=== PATIENT | male | born 1940 | race Caucasian/White ===

== ENCOUNTER 2017-07-11 14:01 | Inpatient (IN) | payer MEDICARE ==
[~2017-07-11] VITALS: Ht 182.9 cm; Wt 97.3 kg
[2017-07-11] MEDS ORDERED: ASPIRIN 325 MG TABLET ONE (14:39)
[2017-07-11] MEDS ORDERED: SUCRALFATE 1 GM TABLET ONE (14:39)
[2017-07-11] MEDS ORDERED: NITROGLYCERIN 0.4 MG SL TAB SL ONE (14:39)
[2017-07-11] MEDS ORDERED: IPRATROPIUM/ALBUTEROL SULFATE 3 ML SOLUTION IH ONE (14:50)
[2017-07-11 15:00] LABS: BASOPHILS % (AUTO) 0.7 % (0.0-5.0); EOSINOPHILS % (AUTO) 2.2 % (0.0-8.0); HEMATOCRIT 32.4 % (42-54); LYMPHOCYTES % (AUTO) 14.5 % (21.0-51.0); MEAN CORPUSCULAR HEMOGLOBIN 27.2 pg (27.0-33.0); MEAN CORPUSCULAR VOLUME 82.4 fL (79-99); MONOCYTES % (AUTO) 7.3 % (3.0-13.0); NEUTROPHILS % (AUTO) 75.3 % (40.0-77.0); PLATELET COUNT (AUTO) 185 K/uL (130-400); RED BLOOD CELL COUNT(AUTO) 3.93 MIL/uL (4.50-6.20); RED CELL DISTRIBUTION WIDTH 16.4 % (11.0-15.5); WHITE BLOOD COUNT (AUTO) 7.6 K/uL (4.8-10.8)
[2017-07-11 15:13] LABS: CREATININE 1.1 mg/dL (0.5-1.5); POTASSIUM 3.6 mmol/L (3.5-5.1)
[2017-07-11 15:14] LABS: INR 0.98 (0.85-1.15); PARTIAL THROMBOPLASTIN TIME 27.1 SEC (26.3-35.5); PROTHROMBIN TIME 10.3 SEC (9.6-11.6)
[2017-07-11 15:28] LABS: ALBUMIN 3.4 g/dL (3.5-5.0); BILIRUBIN,TOTAL 0.4 mg/dL (0.2-1.0); CREATINE KINASE MB 2.4 ng/mL (0.5-3.6); TOTAL PROTEIN, SERUM 6.9 g/dL (6.0-8.3)
[2017-07-11] MEDS ORDERED: FAMOTIDINE 20MG TAB 20 MG TAB ONE (16:15)
[2017-07-11] MEDS ORDERED: NITROGLYCERIN 1GM/1 INCH PACKET TD ONE (16:16)
[2017-07-11] MEDS ORDERED: HYDRALAZINE HCL 20 MG/ML VIAL ONE (18:20)
[2017-07-11] MEDS ORDERED: AZITHROMYCIN 500MG+NS 250ML 250 ML IV ONE (18:21)
[2017-07-11 19:23] VITALS: BP 132/65
[2017-07-11] MEDS ORDERED: HYDRALAZINE HCL 20 MG/ML VIAL IV PRN (20:00)
[2017-07-11 20:41] LABS: CREATINE KINASE MB 1.7 ng/mL (0.5-3.6); CREATINE KINASE, TOTAL 188 U/L (21-232); MYOGLOBIN 78 ng/mL (10-92); TROPONIN I < 0.04 ng/mL (0.00-0.06)
[2017-07-11] MEDS ORDERED: CEFTRIAXONE SODIUM 1 GM IVP SCH (21:00)
[2017-07-11] MEDS ORDERED: CARV25TA PO (22:00)
[2017-07-11] MEDS ORDERED: ROSU20TA30 PO (22:00)
[2017-07-11] MEDS ORDERED: CLIN300C9 PO (22:00)
[2017-07-11] MEDS ORDERED: POTA-79 PO (22:00)
[2017-07-11] MEDS ORDERED: LORA10TA7 PO (22:00)
[2017-07-11] MEDS ORDERED: LISI-613 PO (22:00)
[2017-07-11] MEDS ORDERED: ASPI-555 PO (22:00)
[2017-07-11] MEDS ORDERED: SERT100T12 PO (22:00)
[2017-07-11] MEDS ORDERED: AMLO5TAB2 PO (22:00)
[2017-07-11] MEDS ORDERED: POTASSIUM CHLORIDE 20MEQ/100ML 100 ML IV PRN (22:45)
[2017-07-11] MEDS ORDERED: LIDOCAINE HCL-MPF 1% 2ML VIAL IVP PRN (22:45)
[2017-07-11] MEDS ORDERED: POTASSIUM CHLORIDE 20 MEQ ERTAB PO PRN (22:45)
[2017-07-11] MEDS ORDERED: POTASSIUM CHLORIDE 10% ELIXIR 20 MEQ/15 ML UDCUP PO PRN (22:45)
[2017-07-11] MEDS ORDERED: ACETAMINOPHEN 325 MG TAB PO PRN (22:45)
[2017-07-11 23:16] VITALS: BP 148/73
[2017-07-11] MEDS: IPRATROPIUM/ALBUTEROL SULFATE 3 ML SOLUTION IH SCH (23:16)
[2017-07-12] MEDS: MEROPENEM 500 MG VIAL IVP SCH ×2 (00:13→08:01)
[2017-07-12 02:40] LABS: CREATINE KINASE MB 1.7 ng/mL (0.5-3.6); CREATINE KINASE, TOTAL 163 U/L (21-232); MYOGLOBIN 76 ng/mL (10-92); TROPONIN I < 0.04 ng/mL (0.00-0.06)
[2017-07-12 03:30] VITALS: BP 152/85
[2017-07-12] MEDS ORDERED: MEROPENEM 500MG+NS 50ML 50 ML IV SCH (06:00)
[2017-07-12] MEDS: IPRATROPIUM/ALBUTEROL SULFATE 3 ML SOLUTION IH SCH (06:40)
[2017-07-12 07:00] VITALS: BP 170/84
[2017-07-12] MEDS: POTASSIUM CHLORIDE 20 MEQ ERTAB PO SCH (07:28)
[2017-07-12] MEDS: CARVEDILOL 25 MG TABLET PO SCH ×2 (08:00→16:31)
[2017-07-12] MEDS: LORATADINE 10 MG TABLET PO SCH (08:00)
[2017-07-12] MEDS: FAMOTIDINE/PF 20 MG/2 ML VIAL IV SCH ×2 (08:01→22:12)
[2017-07-12] MEDS ORDERED: CARVEDILOL 25 MG TABLET PO SCH (09:00)
[2017-07-12] MEDS ORDERED: ASPIRIN 81 MG EC TAB PO SCH (09:00)
[2017-07-12] MEDS ORDERED: AMLODIPINE BESYLATE 5 MG TAB PO SCH (09:00)
[2017-07-12] MEDS ORDERED: LISINOPRIL 20 MG TABLET PO SCH (09:00)
[2017-07-12] MEDS ORDERED: SERTRALINE HCL 50 MG TABLET PO SCH (09:00)
[2017-07-12 11:00] VITALS: BP 147/79
[2017-07-12] MEDS: AZTREONAM 1 GM VIAL IVP SCH ×2 (13:43→22:11)
[2017-07-12] MEDS: KETOROLAC TROMETHAMINE 15MG/ML IV PRN (13:45)
[2017-07-12] MEDS ORDERED: AZTREONAM 1 GM in SODIUM CHLORIDE 0.9% 50 ML IV SCH (14:00)
[2017-07-12 16:00] VITALS: BP 159/83
[2017-07-12] MEDS: AMLODIPINE BESYLATE 5 MG TAB PO SCH (16:31)
[2017-07-12] MEDS ORDERED: AZITHROMYCIN 500MG+NS 250ML 250 ML IV SCH (18:00)
[2017-07-12 19:11] VITALS: BP 150/72
[2017-07-12] MEDS: ASPIRIN 81 MG EC TAB PO SCH (22:10)
[2017-07-12] MEDS: ATORVASTATIN CALCIUM 40 MG TABLET PO SCH (22:10)
[2017-07-12] MEDS: LISINOPRIL 20 MG TABLET PO SCH (22:10)
[2017-07-12] MEDS: SERTRALINE HCL 50 MG TABLET PO SCH (22:11)
[2017-07-12] MEDS: AZITHROMYCIN 250 MG TABLET PO SCH (22:11)
[2017-07-12] MEDS: CLINDAMYCIN 300 MG/D5W 50 ML 50 ML IV SCH (22:11)
[2017-07-12 23:16] VITALS: BP 127/66
[2017-07-13] VITALS (7 sets, daily range): BP systolic 116–190; BP diastolic 62–85
[2017-07-13] MEDS: AZTREONAM 1 GM VIAL IVP SCH ×3 (06:10→22:19)
[2017-07-13] MEDS: CLINDAMYCIN 300 MG/D5W 50 ML 50 ML IV SCH ×3 (06:11→22:20)
[2017-07-13] MEDS: CARVEDILOL 25 MG TABLET PO SCH ×2 (07:48→16:28)
[2017-07-13] MEDS: POTASSIUM CHLORIDE 20 MEQ ERTAB PO SCH (07:48)
[2017-07-13] MEDS: LORATADINE 10 MG TABLET PO SCH (07:48)
[2017-07-13] MEDS: FAMOTIDINE/PF 20 MG/2 ML VIAL IV SCH ×2 (07:49→22:12)
[2017-07-13] MEDS: REGADENOSON 0.4 MG/5 ML PF SYG IVP SCH ×2 (08:15→11:15)
[2017-07-13] MEDS: KETOROLAC TROMETHAMINE 15MG/ML IV PRN (13:22)
[2017-07-13] MEDS ORDERED: IPRATROPIUM/ALBUTEROL SULFATE 3 ML SOLUTION IH SCH (13:30)
[2017-07-13] MEDS: CLOPIDOGREL BISULFATE 75 MG TAB PO SCH (14:32)
[2017-07-13] MEDS: AMLODIPINE BESYLATE 5 MG TAB PO SCH (16:27)
[2017-07-13] MEDS: IPRATROPIUM/ALBUTEROL SULFATE 3 ML SOLUTION IH SCH ×2 (18:50→23:53)
[2017-07-13] MEDS: SERTRALINE HCL 50 MG TABLET PO SCH (22:11)
[2017-07-13] MEDS: ATORVASTATIN CALCIUM 40 MG TABLET PO SCH (22:11)
[2017-07-13] MEDS: ASPIRIN 81 MG EC TAB PO SCH (22:12)
[2017-07-13] MEDS: LISINOPRIL 20 MG TABLET PO SCH (22:12)
[2017-07-13] MEDS: AZITHROMYCIN 250 MG TABLET PO SCH (22:12)
[2017-07-14] VITALS (12 sets, daily range): BP systolic 144–173; BP diastolic 70–89
[2017-07-14 04:45] LABS: HEMATOCRIT 29.3 % (42-54); MEAN CORPUSCULAR HEMOGLOBIN 29.2 pg (27.0-33.0); MEAN CORPUSCULAR HGB CONC 35.4 g/dL (32.0-36.0); MEAN CORPUSCULAR VOLUME 82.2 fL (79-99); PLATELET COUNT (AUTO) 168 K/uL (130-400); RED BLOOD CELL COUNT(AUTO) 3.57 MIL/uL (4.50-6.20); RED CELL DISTRIBUTION WIDTH 16.4 % (11.0-15.5); WHITE BLOOD COUNT (AUTO) 5.4 K/uL (4.8-10.8)
[2017-07-14 04:52] LABS: PARTIAL THROMBOPLASTIN TIME 27.2 SEC (26.3-35.5); PROTHROMBIN TIME 10.5 SEC (9.6-11.6)
[2017-07-14 05:01] LABS: CREATININE 0.9 mg/dL (0.5-1.5); POTASSIUM 3.1 mmol/L (3.5-5.1)
[2017-07-14] MEDS: CLINDAMYCIN 300 MG/D5W 50 ML 50 ML IV SCH ×3 (06:33→21:27)
[2017-07-14] MEDS: AZTREONAM 1 GM VIAL IVP SCH ×3 (06:33→23:15)
[2017-07-14] MEDS ORDERED: SODIUM CHLORIDE 0.9% 250 ML IV ONE (06:41)
[2017-07-14] MEDS: IPRATROPIUM/ALBUTEROL SULFATE 3 ML SOLUTION IH SCH ×4 (06:57→23:50)
[2017-07-14] MEDS ORDERED: LIDOCAINE HCL 1% 20 ML VIAL ONE (07:40)
[2017-07-14] MEDS ORDERED: BIVALIRUDIN 250 MG/VIAL IV ONE (07:40)
[2017-07-14] MEDS ORDERED: ISOVUE-370 50ML VIAL IV ONE (07:41)
[2017-07-14] MEDS ORDERED: FENTANYL CITRATE PF 50 MCG/1 ML 2ML VIAL ONE (07:41)
[2017-07-14] MEDS ORDERED: IOPAMIDOL-370 100 ML VIAL IV ONE (07:41)
[2017-07-14] MEDS ORDERED: NITROGLYCERIN 5 MG/ML 10 ML VIAL IV ONE (07:41)
[2017-07-14] MEDS ORDERED: HEPARIN SODIUM 1000UNIT/ML 10ML VIAL ONE (07:41)
[2017-07-14] MEDS ORDERED: MIDAZOLAM HCL 1 MG/ML 2ML VIAL ONE (07:41)
[2017-07-14] MEDS: CARVEDILOL 25 MG TABLET PO SCH ×2 (08:00→17:08)
[2017-07-14] MEDS: POTASSIUM CHLORIDE 20 MEQ ERTAB PO SCH (09:00)
[2017-07-14] MEDS: CLOPIDOGREL BISULFATE 75 MG TAB PO SCH ×2 (09:00→14:15)
[2017-07-14] MEDS: LORATADINE 10 MG TABLET PO SCH (09:00)
[2017-07-14] MEDS: FAMOTIDINE/PF 20 MG/2 ML VIAL IV SCH ×2 (09:00→21:27)
[2017-07-14] MEDS ORDERED: SODIUM CHLORIDE 0.9% 1000ML 1,000 ML IV SCH (09:14)
[2017-07-14] MEDS ORDERED: ACETAMINOPHEN-CODEINE 300/30MG TAB PO PRN (09:15)
[2017-07-14] MEDS ORDERED: CLOPIDOGREL BISULFATE 300 MG TAB ONE (09:21)
[2017-07-14] MEDS ORDERED: ASPIRIN 81MG TAB.CHEW ONE (09:22)
[2017-07-14] MEDS ORDERED: MAG HYDROX/AL HYDROX/SIMETH ES 30 ML SUSP UDCUP PO PRN (13:45)
[2017-07-14] MEDS: AMLODIPINE BESYLATE 5 MG TAB PO SCH (17:07)
[2017-07-14] MEDS: ATORVASTATIN CALCIUM 40 MG TABLET PO SCH (21:23)
[2017-07-14] MEDS: AZITHROMYCIN 250 MG TABLET PO SCH (21:23)
[2017-07-14] MEDS: LISINOPRIL 20 MG TABLET PO SCH (21:24)
[2017-07-14] MEDS: SERTRALINE HCL 50 MG TABLET PO SCH (21:24)
[2017-07-14] MEDS: ASPIRIN 81 MG EC TAB PO SCH (21:24)
[2017-07-15 03:45] VITALS: BP 138/74
[2017-07-15 05:15] LABS: BASOPHILS % (AUTO) 0.6 % (0.0-5.0); EOSINOPHILS % (AUTO) 4.3 % (0.0-8.0); LYMPHOCYTES % (AUTO) 22.3 % (21.0-51.0); MEAN CORPUSCULAR HEMOGLOBIN 28.4 pg (27.0-33.0); MEAN CORPUSCULAR HGB CONC 34.3 g/dL (32.0-36.0); MEAN CORPUSCULAR VOLUME 82.7 fL (79-99); MONOCYTES % (AUTO) 8.8 % (3.0-13.0); PLATELET COUNT (AUTO) 181 K/uL (130-400); RED BLOOD CELL COUNT(AUTO) 3.74 MIL/uL (4.50-6.20); RED CELL DISTRIBUTION WIDTH 16.7 % (11.0-15.5); WHITE BLOOD COUNT (AUTO) 6.2 K/uL (4.8-10.8)
[2017-07-15] MEDS: AZTREONAM 1 GM VIAL IVP SCH (05:34)
[2017-07-15] MEDS: CLINDAMYCIN 300 MG/D5W 50 ML 50 ML IV SCH (05:34)
[2017-07-15 05:35] LABS: POTASSIUM 3.3 mmol/L (3.5-5.1)
[2017-07-15] MEDS ORDERED: POTASSIUM CHLORIDE 10 MEQ/TAB.SA PO ONE ×2 (05:55)
[2017-07-15] MEDS: IPRATROPIUM/ALBUTEROL SULFATE 3 ML SOLUTION IH SCH ×2 (06:59→11:45)
[2017-07-15 08:00] VITALS: BP 145/79
[2017-07-15] MEDS ORDERED: NITR0.4T SL (08:10)
[2017-07-15] MEDS ORDERED: CLOP75TA32 PO (08:10)
[2017-07-15] MEDS ORDERED: PANT40TA PO (08:10)
[2017-07-15] MEDS ORDERED: PANTOPRAZOLE SODIUM 40 MG TABLET.DR PO SCH (08:15)
[2017-07-15] MEDS ORDERED: CLOPIDOGREL BISULFATE 75 MG TAB PO SCH (09:00)
[2017-07-15] MEDS: CARVEDILOL 25 MG TABLET PO SCH (09:06)
[2017-07-15] MEDS: CLOPIDOGREL BISULFATE 75 MG TAB PO SCH (09:06)
[2017-07-15] MEDS: LORATADINE 10 MG TABLET PO SCH (09:06)
[2017-07-15] MEDS: FAMOTIDINE/PF 20 MG/2 ML VIAL IV SCH (09:07)
[2017-07-15] MEDS: POTASSIUM CHLORIDE 20 MEQ ERTAB PO SCH (09:07)
[2017-07-15 11:00] VITALS: BP 132/64
== END 2017-07-15 16:05 | disposition home or self-care (01) | DRG 246 ==
LOC: EDH 14:01 → EDHIP 17:48 → OBSVTOIN 17:48 → INTOOBSV 17:48 → 2DH 19:04
PROVIDERS: ADMIT Family Medicine; ATTEND Family Medicine
PROC: 027034Z Dilation of Coronary Artery, One Artery with Drug-eluting Intraluminal Device, Percutaneous Approach (ICD-10-PCS; principal; 2017-07-14)
PROC: 4A023N7 Measurement of Cardiac Sampling and Pressure, Left Heart, Percutaneous Approach (ICD-10-PCS; 2017-07-14)
PROC: B2111ZZ Fluoroscopy of Multiple Coronary Arteries using Low Osmolar Contrast (ICD-10-PCS; 2017-07-14)
PROC: B2181ZZ Fluoroscopy of Left Internal Mammary Bypass Graft using Low Osmolar Contrast (ICD-10-PCS; 2017-07-14)
PROC: B2151ZZ Fluoroscopy of Left Heart using Low Osmolar Contrast (ICD-10-PCS; 2017-07-14)
DX: I25.119 Atherosclerotic heart disease of native coronary artery with unspecified angina pectoris (principal); J18.9 Pneumonia, unspecified organism; Z86.74 Personal history of sudden cardiac arrest; D64.9 Anemia, unspecified; R13.10 Dysphagia, unspecified; J44.9 Chronic obstructive pulmonary disease, unspecified; I08.0 Rheumatic disorders of both mitral and aortic valves; I10 Essential (primary) hypertension; K04.7 Periapical abscess without sinus; K21.0 Gastro-esophageal reflux disease with esophagitis; K29.70 Gastritis, unspecified, without bleeding; Z79.02 Long term (current) use of antithrombotics/antiplatelets; Z79.82 Long term (current) use of aspirin; Z95.1 Presence of aortocoronary bypass graft; Z95.0 Presence of cardiac pacemaker; Z88.1 Allergy status to other antibiotic agents; Z88.0 Allergy status to penicillin; Z88.8 Allergy status to other drugs, medicaments and biological substances; Z85.51 Personal history of malignant neoplasm of bladder; Z85.46 Personal history of malignant neoplasm of prostate; Z82.49 Family history of ischemic heart disease and other diseases of the circulatory system; Z80.0 Family history of malignant neoplasm of digestive organs
CPT/HCPCS: 36415; 71045; 73502; 74176; 74230; 78452; 80048; 80053; 82550; 82553; 83874; 83880; 84484; 85025; 85027; 85610; 85730; 92611; 93005; 93017; 93306; 93459; 94640; 94664; 96374; 99152; 99153; 99291; A4218; A9500; C1760; C1769; C1887; C1894; C9604; J0360; J0456; J0583; J1644; J1885; J2185; J2250; J2785; J3010; J3480; J3490; J7030; Q9967

== ENCOUNTER 2018-03-02 14:04 | Observation (INO) | payer MEDICARE ==
[~2018-03-02] VITALS: Ht 177.8 cm; Wt 94.3 kg
[~2018-03-02 14:04] MED LIST: AMLO5TAB7 PO; ASPI-555 PO; CARV25TA PO; CLIN300C9 PO; CLOP75TA32 PO; LISI-613 PO; LORA10TA7 PO; NITR0.4T SL; PANT40TA PO; POTA-79 PO; ROSU20TA30 PO; SERT100T12 PO
[2018-03-02 14:27] LABS: EOSINOPHILS % (AUTO) 4.9 % (0.0-8.0); HEMATOCRIT 39.5 % (42-54); LYMPHOCYTES % (AUTO) 16.3 % (21.0-51.0); MEAN CORPUSCULAR HEMOGLOBIN 26.9 pg (27.0-33.0); MEAN CORPUSCULAR HGB CONC 32.6 g/dL (32.0-36.0); MEAN CORPUSCULAR VOLUME 82.4 fL (79-99); MONOCYTES % (AUTO) 7.1 % (3.0-13.0); NEUTROPHILS % (AUTO) 70.7 % (40.0-77.0); PLATELET COUNT (AUTO) 162 K/uL (130-400); RED CELL DISTRIBUTION WIDTH 17.2 % (11.0-15.5); WHITE BLOOD COUNT (AUTO) 7.2 K/uL (4.8-10.8)
[2018-03-02] MEDS ORDERED: MORPHINE SULFATE 4 MG/1ML SYG ONE ×2 (14:36→15:41)
[2018-03-02] MEDS ORDERED: ONDANSETRON HCL 4 MG/2 ML VIAL ONE (14:36)
[2018-03-02 14:37] LABS: CREATININE 1.3 mg/dL (0.5-1.5); POTASSIUM 4.5 mmol/L (3.5-5.1)
[2018-03-02 14:41] LABS: ALBUMIN 3.6 g/dL (3.5-5.0); BILIRUBIN,TOTAL 0.4 mg/dL (0.2-1.0); TOTAL PROTEIN, SERUM 7.5 g/dL (6.0-8.3)
[2018-03-02 15:28] LABS: APPEARANCE,URINE CLOUDY (CLEAR); BILIRUBIN,URINE NEGATIVE (NEGATIVE); COLOR,URINE YELLOW (YELLOW); GLUCOSE, URINE (UA) NEGATIVE (NEGATIVE); KETONES,URINE NEGATIVE (NEGATIVE); LEUKOCYTE ESTERASE ,URINE NEGATIVE (NEGATIVE); NITRATE,URINE NEGATIVE (NEGATIVE); OCCULT BLOOD,URINE LARGE (NEGATIVE); PH,URINE 6.5 (5.0-8.0); PROTEIN,URINE 30 (NEGATIVE); UROBILINOGEN,URINE 0.2 mg/dL (0.2-1.0)
[2018-03-02 15:44] LABS: RBC,URINE >100 /HPF (0-1)
[2018-03-02 15:49] LABS: BACTERIA,URINE Rare /HPF (None Seen)
[2018-03-02 15:50] LABS: SQUAMOUS EPITHELIAL CELL,UR None Seen /HPF (0-2)
[2018-03-02] MEDS ORDERED: KETOROLAC TROMETHAMINE 30MG/ML ONE (15:59)
[2018-03-02] MEDS ORDERED: NITROGLYCERIN 0.4 MG SL TAB SL PRN (20:15)
[2018-03-02] MEDS ORDERED: ONDANSETRON HCL 4 MG/2 ML VIAL IV PRN (20:15)
[2018-03-02] MEDS ORDERED: ACETAMINOPHEN 325 MG TAB PO PRN (20:15)
[2018-03-02] MEDS ORDERED: GENTAMICIN SULFATE/PF 10 MG/1 ML 2ML IV SCH (20:15)
[2018-03-02] MEDS ORDERED: MORPHINE SULFATE 4 MG/1ML SYG IV PRN (20:15)
[2018-03-02] MEDS ORDERED: CARVEDILOL 12.5 MG TABLET PO SCH (21:00)
[2018-03-02] MEDS: ATORVASTATIN CALCIUM 40 MG TABLET PO SCH (21:00)
[2018-03-02] MEDS ORDERED: CARVEDILOL 12.5 MG TABLET PO ONE (23:40)
[2018-03-03] VITALS (7 sets, daily range): BP systolic 72–157; BP diastolic 69–80
[2018-03-03] MEDS ORDERED: GENTAMICIN PROTOCOL PER PHARMACY IV SCH (00:15)
[2018-03-03] MEDS ORDERED: CARV25TA PO (00:28)
[2018-03-03] MEDS ORDERED: SPIR25TA6 PO (00:30)
[2018-03-03] MEDS: SODIUM CHLORIDE 0.9% 1000ML 1,000 ML IV SCH ×3 (01:11→22:14)
[2018-03-03] MEDS: FAMOTIDINE/PF 20 MG/2 ML VIAL IV SCH ×3 (01:11→20:21)
[2018-03-03] MEDS ORDERED: PHARMACY COMMUNICATION MISC SCH (02:00)
[2018-03-03] MEDS ORDERED: GENTAMICIN 120 MG IN 100ML NS 100 ML IV SCH (04:00)
[2018-03-03] MEDS ORDERED: GENTAMICIN SULFATE 80 MG/2 ML VIAL ONE (04:11)
[2018-03-03] MEDS ORDERED: SODIUM CHLORIDE 0.9% 100 ML IV ONE (04:16)
[2018-03-03] MEDS: CLOPIDOGREL BISULFATE 75 MG TAB PO SCH ×2 (08:50→20:21)
[2018-03-03] MEDS: TAMSULOSIN HCL 0.4 MG CAP.ER.24H PO SCH (08:51)
[2018-03-03] MEDS: CARVEDILOL 12.5 MG TABLET PO SCH (08:51)
[2018-03-03] MEDS: SPIRONOLACTONE 25 MG TAB PO SCH (08:51)
[2018-03-03] MEDS: ENOXAPARIN SODIUM 30 MG/0.3 ML SQ SCH (09:00)
[2018-03-03] MEDS ORDERED: AMLODIPINE BESYLATE 5 MG TAB PO SCH ×2 (09:00→17:00)
[2018-03-03] MEDS ORDERED: POTASSIUM CHLORIDE 20 MEQ ERTAB PO SCH (09:00)
[2018-03-03] MEDS ORDERED: LORATADINE 10 MG TABLET PO PRN (09:00)
[2018-03-03] MEDS ORDERED: LISINOPRIL 20 MG TABLET PO SCH ×2 (09:00→21:00)
[2018-03-03] MEDS ORDERED: ASPIRIN 81MG TAB.CHEW PO SCH ×2 (09:00→21:00)
[2018-03-03] MEDS ORDERED: LORATADINE 10 MG TABLET PO SCH (09:00)
[2018-03-03] MEDS ORDERED: SERTRALINE HCL 50 MG TABLET PO SCH ×2 (09:00→21:00)
[2018-03-03] MEDS ORDERED: CARVEDILOL 25 MG TABLET PO SCH (18:00)
[2018-03-03] MEDS: ATORVASTATIN CALCIUM 40 MG TABLET PO SCH (22:09)
[2018-03-04 04:00] VITALS: BP 119/67
[2018-03-04 04:50] LABS: HEMATOCRIT 35.3 % (42-54); MEAN CORPUSCULAR HEMOGLOBIN 27.1 pg (27.0-33.0); MEAN CORPUSCULAR HGB CONC 33.3 g/dL (32.0-36.0); MEAN CORPUSCULAR VOLUME 81.5 fL (79-99); NUCLEATED RED BLOOD CELLS 0.1 % (0.0-0.19); PLATELET COUNT (AUTO) 158 K/uL (130-400); RED BLOOD CELL COUNT(AUTO) 4.33 MIL/uL (4.50-6.20); RED CELL DISTRIBUTION WIDTH 17.2 % (11.0-15.5); WHITE BLOOD COUNT (AUTO) 6.4 K/uL (4.8-10.8)
[2018-03-04] MEDS ORDERED: GENTAMICIN 120 MG IN 100ML NS 100 ML IV SCH (05:00)
[2018-03-04 05:06] LABS: CARBON DIOXIDE 28 mmol/L (21-32); CHLORIDE 108 mmol/L (101-111); CREATININE 1.1 mg/dL (0.5-1.5); GENTAMICIN,TROUGH < 0.2 mcg/mL (0.0-2.0); GLOMERULAR FILTR. RATE CALC 69 mL/min (>60); GLUCOSE,RANDOM 98 mg/dL (70-105); POTASSIUM 3.9 mmol/L (3.5-5.1); SODIUM SERUM 143 mmol/L (136-145); UREA NITROGEN, BLOOD 23 mg/dL (7-18)
[2018-03-04 08:00] VITALS: BP 148/81
[2018-03-04] MEDS ORDERED: IOHEXOL 350 MG/ML 100ML INFUS..BTL IV ONE (10:03)
[2018-03-04 12:00] VITALS: BP 177/81
[2018-03-04] MEDS: TAMSULOSIN HCL 0.4 MG CAP.ER.24H PO SCH (14:48)
[2018-03-04] MEDS: ENOXAPARIN SODIUM 30 MG/0.3 ML SQ SCH (14:48)
[2018-03-04] MEDS: SPIRONOLACTONE 25 MG TAB PO SCH (14:48)
[2018-03-04] MEDS: CLOPIDOGREL BISULFATE 75 MG TAB PO SCH (14:48)
[2018-03-04 14:49] VITALS: BP 148/81
[2018-03-04] MEDS: FAMOTIDINE/PF 20 MG/2 ML VIAL IV SCH (14:49)
[2018-03-04] MEDS: CARVEDILOL 12.5 MG TABLET PO SCH (14:49)
[2018-03-04] MEDS ORDERED: GENTAMICIN 80 MG/NS 100 ML PB 100 ML IV SCH (21:00)
== END 2018-03-04 18:30 | disposition home or self-care (01) ==
LOC: EDH 14:04 → EDHIP 18:44 → 3AH 22:29
PROVIDERS: ADMIT Internal Medicine; ATTEND Internal Medicine
DX: N20.1 Calculus of ureter (principal); E66.9 Obesity, unspecified; I25.10 Atherosclerotic heart disease of native coronary artery without angina pectoris; J44.9 Chronic obstructive pulmonary disease, unspecified; K57.30 Diverticulosis of large intestine without perforation or abscess without bleeding; K76.89 Other specified diseases of liver; N13.9 Obstructive and reflux uropathy, unspecified; Z85.46 Personal history of malignant neoplasm of prostate; Z85.51 Personal history of malignant neoplasm of bladder; Z87.442 Personal history of urinary calculi; Z95.1 Presence of aortocoronary bypass graft; Z88.0 Allergy status to penicillin; Z88.8 Allergy status to other drugs, medicaments and biological substances
CPT/HCPCS: 36415 ×2; 74176; 74400; 80048; 80053; 80170 ×2; 81001; 84484; 85025; 85027; 86140; 93005; 96365; 96366; 96372; 96375; 96376 ×2; 99284; G0378 ×48; J1580 ×4; J1650; J1885; J2270 ×3; J2405 ×2; J3490 ×4; J7030 ×2; Q9967

== ENCOUNTER → 2018-03-10 | Emergency (ER) | payer MEDICARE ==
[~2018-03-10] MED LIST changes: +ONDANSETRON HCL 4 MG/2 ML VIAL ONE; -POTA-79 PO; +SODIUM CHLORIDE 0.9% 1000ML 0 ML IV ONE; +SODIUM CHLORIDE 0.9% 1000ML 1,000 ML IV ONE; +SPIR25TA6 PO; +TAMSULOSIN HCL 0.4 MG CAP.ER.24H ONE; +TRAMADOL HCL 50 MG TABLET ONE
[2018-03-10 15:36] LABS: APPEARANCE,URINE Clear (CLEAR); BASOPHILS % (AUTO) 1.1 % (0.0-5.0); BILIRUBIN,URINE Negative (NEGATIVE); COLOR,URINE Yellow (YELLOW); EOSINOPHILS % (AUTO) 7.2 % (0.0-8.0); GLUCOSE, URINE (UA) Negative (NEGATIVE); HEMATOCRIT 38.7 % (42-54); KETONES,URINE Negative (NEGATIVE); LEUKOCYTE ESTERASE ,URINE Negative (NEGATIVE); LYMPHOCYTES % (AUTO) 12.7 % (21.0-51.0); MEAN CORPUSCULAR HEMOGLOBIN 26.2 pg (27.0-33.0); MEAN CORPUSCULAR VOLUME 81.7 fL (79-99); MONOCYTES % (AUTO) 11.7 % (3.0-13.0); NEUTROPHILS % (AUTO) 67.3 % (40.0-77.0); NITRATE,URINE Negative (NEGATIVE); OCCULT BLOOD,URINE Small (NEGATIVE); PLATELET COUNT (AUTO) 176 K/uL (130-400); PROTEIN,URINE Trace (NEGATIVE); RED BLOOD CELL COUNT(AUTO) 4.73 MIL/uL (4.50-6.20); RED CELL DISTRIBUTION WIDTH 17.2 % (11.0-15.5); WHITE BLOOD COUNT (AUTO) 7.6 K/uL (4.8-10.8)
[2018-03-10 15:56] LABS: CREATININE 1.6 mg/dL (0.5-1.5); INR 0.93 (0.85-1.15); POTASSIUM 4.1 mmol/L (3.5-5.1); PROTHROMBIN TIME 9.8 SEC (9.6-11.6)
[2018-03-10 15:59] LABS: AMYLASE 75 U/L (25-115); CREATINE KINASE, TOTAL 89 U/L (21-232); LIPASE 342 U/L (114-286)
[2018-03-10 16:01] LABS: ALBUMIN 3.3 g/dL (3.5-5.0); BILIRUBIN,TOTAL 0.3 mg/dL (0.2-1.0); TOTAL PROTEIN, SERUM 7.5 g/dL (6.0-8.3)
[2018-03-10 16:07] LABS: BACTERIA,URINE None Seen /HPF (None Seen); WBC,URINE None Seen /HPF (0-1)
[2018-03-10 16:08] LABS: MUCUS,URINE Moderate LPF (None Seen); SQUAMOUS EPITHELIAL CELL,UR 0-2 /HPF (0-2)
== END ==
LOC: EDH 14:45
DX: N20.1 Calculus of ureter (principal); I10 Essential (primary) hypertension; I25.10 Atherosclerotic heart disease of native coronary artery without angina pectoris; Z85.46 Personal history of malignant neoplasm of prostate; Z85.51 Personal history of malignant neoplasm of bladder; Z87.891 Personal history of nicotine dependence; Z88.0 Allergy status to penicillin; Z88.1 Allergy status to other antibiotic agents; Z88.8 Allergy status to other drugs, medicaments and biological substances
CPT/HCPCS: 36415; 71045; 74176; 80053; 81001; 82150; 82550; 83690; 84484; 85025; 85610; 85730; 93005; 96374; 99284; J2405 ×2; J7030

== ENCOUNTER 2018-03-18 11:00 | Observation (INO) | payer MEDICARE ==
[2018-03-16 14:08] VITALS: BP 135/62
[2018-03-16 14:11] LABS: HEMATOCRIT 35.9 % (42-54); MEAN CORPUSCULAR HEMOGLOBIN 25.9 pg (27.0-33.0); MEAN CORPUSCULAR HGB CONC 31.5 g/dL (32.0-36.0); MEAN CORPUSCULAR VOLUME 82.4 fL (79-99); NUCLEATED RED BLOOD CELLS 0.1 % (0.0-0.19); PLATELET COUNT (AUTO) 194 K/uL (130-400); RED BLOOD CELL COUNT(AUTO) 4.36 MIL/uL (4.50-6.20); RED CELL DISTRIBUTION WIDTH 16.5 % (11.0-15.5); WHITE BLOOD COUNT (AUTO) 5.8 K/uL (4.8-10.8)
[2018-03-16 14:20] LABS: APPEARANCE,URINE Clear (CLEAR); BILIRUBIN,URINE Negative (NEGATIVE); COLOR,URINE Yellow (YELLOW); GLUCOSE, URINE (UA) Negative (NEGATIVE); KETONES,URINE Trace mg/dL (NEGATIVE); LEUKOCYTE ESTERASE ,URINE Negative (NEGATIVE); NITRATE,URINE Negative (NEGATIVE); OCCULT BLOOD,URINE Negative (NEGATIVE); PH,URINE 5.5 (5.0-8.0); PROTEIN,URINE POS 1+ (NEGATIVE)
[2018-03-16 14:22] LABS: BACTERIA,URINE Rare /HPF (None Seen); MUCUS,URINE Rare LPF (None Seen); RBC,URINE 0-1 /HPF (0-1); SQUAMOUS EPITHELIAL CELL,UR Rare /HPF (0-2)
[2018-03-16 14:27] LABS: CREATININE 1.7 mg/dL (0.5-1.5); POTASSIUM 3.9 mmol/L (3.5-5.1)
[2018-03-16 14:29] LABS: INR 0.99 (0.85-1.15); PARTIAL THROMBOPLASTIN TIME 29.6 SEC (26.3-35.5); PROTHROMBIN TIME 10.4 SEC (9.6-11.6)
--- NOTE | 2018-03-16 15:14 | NUR ---
meds Dr. Duarte was called to notify him that patient didn't stop plavix or aspirin, pt took dose this am. Message left on his voicemail. Patient instructed to stop plavix /aspirin immediately , he verbalized understanding.
[~2018-03-18] VITALS: Ht 180.3 cm; Wt 95.3 kg
[2018-03-18] VITALS (20 sets, daily range): BP systolic 72–177; BP diastolic 53–93
[~2018-03-18 11:00] MED LIST changes: -AMLO5TAB7 PO; +AMLO5TAB9 PO; -CLIN300C9 PO; +FEXO1TAB8 PO; -LORA10TA7 PO; -ONDANSETRON HCL 4 MG/2 ML VIAL ONE; +PHARMACY COMMUNICATION MISC SCH; +ROSU20TA PO; -ROSU20TA30 PO; -SODIUM CHLORIDE 0.9% 1000ML 0 ML IV ONE; -SODIUM CHLORIDE 0.9% 1000ML 1,000 ML IV ONE; -TAMSULOSIN HCL 0.4 MG CAP.ER.24H ONE; -TRAMADOL HCL 50 MG TABLET ONE
[2018-03-18] MEDS ORDERED: IOHEXOL-350 50ML VIAL IV ONE (11:34)
[2018-03-18] MEDS: LACTATED RINGERS 1000ML 1,000 ML IV SCH ×3 (12:22→17:15)
--- NOTE | 2018-03-18 12:22 | NUR ---
VALUABLES: WALLET, CELL PHONE, CLOTHING, UPPER / LOWER PARTIALS, AND GLASSES GIVEN TO .
[2018-03-18] MEDS ORDERED: LIDOCAINE PF 2% 5ML ABBOJECT ONE (12:24)
[2018-03-18] MEDS ORDERED: DEXAMETHASONE SOD PHOSPHATE 10MG/ML 1ML VIAL ONE (12:24)
[2018-03-18] MEDS ORDERED: ONDANSETRON HCL 4 MG/2 ML VIAL ONE (12:25)
[2018-03-18] MEDS ORDERED: PROPOFOL 10 MG/ML 20ML VIAL IV ONE (12:25)
[2018-03-18] MEDS ORDERED: FENTANYL CITRATE PF 50 MCG/1 ML 2ML VIAL ONE (12:25)
[2018-03-18] MEDS ORDERED: MIDAZOLAM HCL 1 MG/ML 2ML VIAL ONE (12:25)
[2018-03-18] MEDS ORDERED: CLINDAMYCIN 900 MG/D5% WATER 50 ML IV ONE (12:33)
[2018-03-18] MEDS ORDERED: EPHEDRINE SULFATE 50 MG/ML AMPULE ONE (12:51)
[2018-03-18] MEDS ORDERED: GENTAMICIN IV ONE (12:58)
[2018-03-18] MEDS ORDERED: [UNRECOGNIZED DRUG - OTHER] IV ONE (12:58)
[2018-03-18] MEDS ORDERED: MEPERIDINE-PF 25 MG/ML SYG ONE (13:52)
[2018-03-18] MEDS ORDERED: FEXOFENADINE PO PRN (15:15)
[2018-03-18] MEDS ORDERED: NITROGLYCERIN 0.4 MG SL TAB SL PRN (15:15)
[2018-03-18] MEDS ORDERED: PSEUDOEPHEDRINE PO PRN (15:15)
[2018-03-18] MEDS ORDERED: CARV12.511 PO (15:48)
[2018-03-18] MEDS ORDERED: CARV25TA PO (15:49)
[2018-03-18] MEDS ORDERED: ASPI-1181 PO (15:53)
[2018-03-18] MEDS ORDERED: LISI-613 PO (15:53)
[2018-03-18] MEDS ORDERED: ONDANSETRON HCL 4 MG/2 ML VIAL IVP PRN (17:15)
[2018-03-18] MEDS ORDERED: MEPERIDINE-PF 75 MG/ML SYG IM PRN (17:15)
[2018-03-18] MEDS ORDERED: ACETAMINOPHEN-CODEINE 300/30MG TAB PO PRN (17:15)
[2018-03-18] MEDS ORDERED: COMPOUND IV REFRIGERATED 1 EACH IVSOLN MISC PRN (17:30)
[2018-03-18] MEDS ORDERED: AMLODIPINE BESYLATE 5 MG TAB PO SCH (18:00)
[2018-03-18] MEDS ORDERED: GENTAMICIN SULFATE 160 MG in SODIUM CHLORIDE 0.9% 100 ML IV SCH (18:00)
[2018-03-18] MEDS: CARVEDILOL 25 MG TABLET PO SCH (18:22)
[2018-03-18] MEDS ORDERED: NON-FORMULARY MEDICATION 1 EACH (Aspirin (Aspirin EC) 81 MG) PO SCH (21:00)
[2018-03-18] MEDS ORDERED: LISINOPRIL 20 MG TABLET PO SCH (21:00)
[2018-03-18] MEDS ORDERED: CARVEDILOL 25 MG TABLET PO SCH (21:00)
[2018-03-18] MEDS ORDERED: ATORVASTATIN CALCIUM 40 MG TABLET PO SCH (21:00)
[2018-03-18] MEDS ORDERED: SERTRALINE HCL 50 MG TABLET PO SCH (21:00)
[2018-03-18] MEDS ORDERED: ASPIRIN 81 MG EC TAB PO SCH (21:00)
[2018-03-19] MEDS: CARVEDILOL 25 MG TABLET PO SCH (00:08)
[2018-03-19 03:00] VITALS: BP 148/79
[2018-03-19] MEDS: LACTATED RINGERS 1000ML 1,000 ML IV SCH (03:15)
[2018-03-19 05:45] LABS: HEMATOCRIT 33.2 % (42-54); MEAN CORPUSCULAR HEMOGLOBIN 26.6 pg (27.0-33.0); MEAN CORPUSCULAR HGB CONC 32.7 g/dL (32.0-36.0); MEAN CORPUSCULAR VOLUME 81.1 fL (79-99); PLATELET COUNT (AUTO) 194 K/uL (130-400); WHITE BLOOD COUNT (AUTO) 7.1 K/uL (4.8-10.8)
[2018-03-19 05:51] LABS: CREATININE 1.7 mg/dL (0.5-1.5); POTASSIUM 4.6 mmol/L (3.5-5.1)
[2018-03-19] MEDS ORDERED: PANTOPRAZOLE SODIUM 40 MG TABLET.DR PO SCH (07:30)
[2018-03-19] MEDS ORDERED: LISINOPRIL 20 MG TABLET PO SCH (09:00)
[2018-03-19] MEDS ORDERED: CLOPIDOGREL BISULFATE 75 MG TAB PO SCH (09:00)
[2018-03-19] MEDS ORDERED: SERTRALINE HCL 50 MG TABLET PO SCH (09:00)
[2018-03-19] MEDS ORDERED: SPIRONOLACTONE 25 MG TAB PO SCH (09:00)
[2018-03-19] MEDS ORDERED: CARVEDILOL 12.5 MG TABLET PO SCH (09:00)
[2018-03-19 09:08] VITALS: BP 165/79
[2018-03-19 12:17] VITALS: BP 155/80
[2018-03-19] MEDS ORDERED: GENTAMICIN SULFATE 160 MG in SODIUM CHLORIDE 0.9% 100 ML IV SCH (13:00)
[2018-03-19 16:00] VITALS: BP 164/78
[2018-03-19 16:30] VITALS: BP 154/78
== END 2018-03-19 19:11 | disposition home or self-care (01) ==
LOC: DAH 11:00 → DAHIP 11:01 → DAH 11:01 → 3DH 15:25
PROVIDERS: ADMIT Urology; ATTEND Urology
DX: N20.1 Calculus of ureter (principal); N13.5 Crossing vessel and stricture of ureter without hydronephrosis; I25.10 Atherosclerotic heart disease of native coronary artery without angina pectoris; D49.4 Neoplasm of unspecified behavior of bladder; Z85.46 Personal history of malignant neoplasm of prostate; Z85.51 Personal history of malignant neoplasm of bladder; Z90.6 Acquired absence of other parts of urinary tract; Z95.1 Presence of aortocoronary bypass graft; Z88.0 Allergy status to penicillin; Z88.8 Allergy status to other drugs, medicaments and biological substances; Z79.899 Other long term (current) drug therapy; Z79.01 Long term (current) use of anticoagulants
CPT/HCPCS: 36415 ×2; 52332; 71046; 74420; 80048 ×2; 81001; 85027 ×2; 85610; 85730; 87088 ×2; 88305; 93005; 96365; 96366; A4354; A4358; A4600; C1758 ×2; C1769; C2617; G0378 ×32; J1100; J1580 ×3; J2001; J2175; J2250; J2405; J2704; J3010; J3490 ×2; J7120 ×2; Q9967; 96360; 96361

== ENCOUNTER 2018-03-31 09:07 | Observation (INO) | payer MEDICARE ==
[2018-03-27 16:10] VITALS: BP 156/73
[2018-03-27 16:31] LABS: HEMATOCRIT 34.1 % (42-54); MEAN CORPUSCULAR HEMOGLOBIN 26.6 pg (27.0-33.0); MEAN CORPUSCULAR HGB CONC 32.8 g/dL (32.0-36.0); MEAN CORPUSCULAR VOLUME 81.3 fL (79-99); PLATELET COUNT (AUTO) 218 K/uL (130-400); RED BLOOD CELL COUNT(AUTO) 4.19 MIL/uL (4.50-6.20); RED CELL DISTRIBUTION WIDTH 16.8 % (11.0-15.5); WHITE BLOOD COUNT (AUTO) 6.5 K/uL (4.8-10.8)
[2018-03-27 16:34] LABS: APPEARANCE,URINE Cloudy (CLEAR); BILIRUBIN,URINE Negative (NEGATIVE); COLOR,URINE DARK YELLOW (YELLOW); GLUCOSE, URINE (UA) Negative (NEGATIVE); KETONES,URINE Negative (NEGATIVE); LEUKOCYTE ESTERASE ,URINE Small (NEGATIVE); NITRATE,URINE Negative (NEGATIVE); OCCULT BLOOD,URINE Large (NEGATIVE); PROTEIN,URINE POS 2+ (NEGATIVE)
[2018-03-27 16:44] LABS: CREATININE 1.4 mg/dL (0.5-1.5); POTASSIUM 4.2 mmol/L (3.5-5.1)
[2018-03-27 16:47] LABS: RBC,URINE >100 /HPF (0-1)
[2018-03-27 16:48] LABS: BACTERIA,URINE Few /HPF (None Seen); SQUAMOUS EPITHELIAL CELL,UR Rare /HPF (0-2)
--- NOTE | 2018-03-27 16:50 | NUR ---
CONTINUATION OF ASPIRIN AND PLAVIX PER PATIENT AND PATIENTS MR. ROTH IS NOT TO STOP THE ASPIRIN AND PLAVIX FOR THE SURGERY AND STATED DR. ADDISON IS AWARE. SPOKE TO DR. ADDISON'S OFFICE STAFF AND THEY CONFIRMED PER DR. ADDISON THAT MR. ROTH IS TO CONTINUE WITH HIS ASPIRIN AND PLAVIX AND NOT TO STOP THEM FOR HIS SURGERY.
[2018-03-27 16:55] LABS: INR 0.99 (0.85-1.15); PARTIAL THROMBOPLASTIN TIME 28.4 SEC (26.3-35.5); PROTHROMBIN TIME 10.4 SEC (9.6-11.6)
--- NOTE | 2018-03-30 11:25 | NUR ---
CONTINUATION OF ASPIRIN AND PLAVIX PER PATIENT AND PATIENTS MR. ROTH IS NOT TO STOP HIS ASPIRIN AND PLAVIX [id number]
--- NOTE | 2018-03-30 14:13 | NUR ---
EKG REPORTED ABNORMAL EKG TO DR. RIBEIRO. NO NEW ORDERS
--- NOTE | 2018-03-30 14:13 | NUR ---
ABNORMAL LABS REPORTED ALL ABNORNMAL LABS TO DR. BLACKWOOD OFFICE. SPOKE WITH RACHANA GOOD. PER LATISHA NO NEW ORDERS.
[~2018-03-31] VITALS: Ht 181.6 cm; Wt 94.4 kg
[2018-03-31] VITALS (19 sets, daily range): BP systolic 135–194; BP diastolic 64–94
[~2018-03-31 09:07] MED LIST changes: +ASPI-1181 PO; -ASPI-555 PO; +CARV12.511 PO; -PHARMACY COMMUNICATION MISC SCH
[2018-03-31] MEDS ORDERED: CEFAZOLIN SODIUM 1 GM VIAL ONE (09:43)
[2018-03-31] MEDS ORDERED: LACTATED RINGERS 1000ML 1,000 ML IV ONE (09:43)
[2018-03-31] MEDS ORDERED: IOHEXOL-350 50ML VIAL IV ONE (10:23)
[2018-03-31] MEDS ORDERED: CLINDAMYCIN 600 MG/D5% WATER 50 ML IV ONE (13:25)
[2018-03-31] MEDS ORDERED: PROPOFOL 10 MG/ML 20ML VIAL IV ONE (13:52)
[2018-03-31] MEDS ORDERED: MIDAZOLAM HCL 1 MG/ML 2ML VIAL ONE (13:52)
[2018-03-31] MEDS ORDERED: FENTANYL CITRATE PF 50 MCG/1 ML 5ML AMP IV ONE (13:53)
[2018-03-31] MEDS ORDERED: ROCURONIUM 10MG/1ML SYR 10 MG/ML ML ONE (13:55)
[2018-03-31] MEDS ORDERED: GLYCOPYRROLATE 1 MG/5 ML SYRINGE ONE (15:10)
[2018-03-31] MEDS ORDERED: NEOSTIGMINE 5MG/5ML SYR IV ONE (15:11)
[2018-03-31] MEDS ORDERED: ACETAMINOPHEN 325 MG TAB PO PRN (17:00)
[2018-03-31] MEDS ORDERED: MEPERIDINE-PF 75 MG/ML SYG IM PRN (17:00)
[2018-03-31] MEDS ORDERED: ACETAMINOPHEN-CODEINE 300/30MG TAB PO PRN (17:00)
[2018-03-31] MEDS ORDERED: ONDANSETRON HCL MDV 20ML 2 MG/ML VIAL IVP PRN (17:00)
[2018-03-31] MEDS: CLINDAMYCIN 600 MG/D5% WATER 50 ML IV SCH (18:51)
[2018-03-31] MEDS: LACTATED RINGERS 1000ML 1,000 ML IV SCH (18:51)
[2018-03-31] MEDS ORDERED: PSEUDOEPHEDRINE PO PRN (19:00)
[2018-03-31] MEDS ORDERED: NITROGLYCERIN 0.4 MG SL TAB SL PRN (19:00)
[2018-03-31] MEDS ORDERED: FEXOFENADINE PO PRN (19:00)
--- NOTE | 2018-03-31 19:00 | NUR ---
PATIENT ARRIVED TO THE UNIT VIA STRETCHER AT 1735 BUT WAS NOT IN THE E. SYSTEM UNTIL NOW, AND THE CHARGE NURSE WAS AWARE. HE HAS BEEN WITHOUT DISTRESS AND STABLE WITH URINARY CATHETER TO BESIDE DRAINAGE BAG WITH CRANBERRY-LIKE URINE THAT IS CLEARING UP. HE DENIED PAIN ON ARRIVAL. HIS MEDS ARE NOW RECONCILED AND HIS PAST DUE MEDS WERE GIVEN. HIS CARE WILL BE ENDORSED TO THE INCOMING NURSE AT THIS TIME.
[2018-03-31] MEDS ORDERED: CARVEDILOL 12.5 MG TABLET PO SCH (19:23)
[2018-03-31] MEDS ORDERED: CARVEDILOL 25 MG TABLET PO SCH (20:30)
[2018-03-31] MEDS ORDERED: AMLODIPINE BESYLATE 5 MG TAB PO SCH (20:30)
[2018-03-31] MEDS ORDERED: ASPIRIN 81 MG EC TAB PO SCH (21:00)
[2018-03-31] MEDS ORDERED: LISINOPRIL 20 MG TABLET PO SCH (21:00)
[2018-03-31] MEDS ORDERED: ATORVASTATIN CALCIUM 40 MG TABLET PO SCH (21:00)
[2018-03-31] MEDS ORDERED: SERTRALINE HCL 50 MG TABLET PO SCH (21:00)
[2018-04-01] VITALS: BP 137/58
[2018-04-01] MEDS: CLINDAMYCIN 600 MG/D5% WATER 50 ML IV SCH ×3 (01:02→17:00)
[2018-04-01 04:00] VITALS: BP 112/45
[2018-04-01 05:18] LABS: HEMATOCRIT 30.5 % (42-54); MEAN CORPUSCULAR HEMOGLOBIN 26.3 pg (27.0-33.0); MEAN CORPUSCULAR HGB CONC 32.6 g/dL (32.0-36.0); MEAN CORPUSCULAR VOLUME 80.7 fL (79-99); NUCLEATED RED BLOOD CELLS 0.1 % (0.0-0.19); PLATELET COUNT (AUTO) 138 K/uL (130-400); RED BLOOD CELL COUNT(AUTO) 3.78 MIL/uL (4.50-6.20); RED CELL DISTRIBUTION WIDTH 16.8 % (11.0-15.5); WHITE BLOOD COUNT (AUTO) 6.1 K/uL (4.8-10.8)
[2018-04-01 05:35] LABS: CREATININE 1.1 mg/dL (0.5-1.5); POTASSIUM 3.7 mmol/L (3.5-5.1)
[2018-04-01] MEDS ORDERED: PANTOPRAZOLE SODIUM 40 MG TABLET.DR PO SCH (07:30)
[2018-04-01 08:17] VITALS: BP 178/81
[2018-04-01] MEDS: LACTATED RINGERS 1000ML 1,000 ML IV SCH (08:45)
[2018-04-01] MEDS ORDERED: CARVEDILOL 12.5 MG TABLET PO SCH (09:00)
[2018-04-01] MEDS ORDERED: SPIRONOLACTONE 25 MG TAB PO SCH (09:00)
[2018-04-01] MEDS ORDERED: CLOPIDOGREL BISULFATE 75 MG TAB PO SCH (09:00)
[2018-04-01 12:41] VITALS: BP 134/65
--- NOTE | 2018-04-01 13:30 | NUR ---
DR ADDISON IN TO SEE PATIENT NEW ORDERS TO REMOVE PETTY CATHETER IF PATIENT IS UNABLE TO VOIDS REPLACE PETTY , IF PATIENT VOIDS HE MAY BE D/C FOR HOME ON BACTRIM DS ONE BID FOR 7 DAYS. FOLLOW-UP WITH DR ADDISON IN 1 WEEK
[2018-04-01 16:03] VITALS: BP 173/61
--- NOTE | 2018-04-01 17:35 | NUR ---
PATIENT GIVEN DISCHARGE INSTRUCTIONS AND VERBALIZED UNDERSTANDING, IV D/C WITH CATHETER INTACT, PRESSURE HELD ON SITE THEN SITE DRESSED WITH PRESSURE DRESSING. PATIENT GIVEN FOLLOW-UP APPOINTMENT WITH DR ADDISON Mar AT 0930. PATIENT INSTRUCTED TO START BACTRIM PRESCRIBED 1 TAB BID FOR 7 DAYS . NO QUESTIONS OR CONCERNS AT THIS TIME. PATIENT STATES HE IS VOIDING WELL WITHOUT PAIN AND WILL FOLLOW ALL INSTRUCTION . PATIENT WALKED WITH STAFF TO [facility] AND LEFT WITH HIS FOR HOME.
== END 2018-04-01 17:30 | disposition home or self-care (01) ==
LOC: DAH 09:07 → 3DH 09:08 → DAH 10:00
PROVIDERS: ADMIT Urology; ATTEND Urology
DX: N20.2 Calculus of kidney with calculus of ureter (principal); I10 Essential (primary) hypertension; K21.9 Gastro-esophageal reflux disease without esophagitis; N40.0 Benign prostatic hyperplasia without lower urinary tract symptoms; J43.9 Emphysema, unspecified; Z85.51 Personal history of malignant neoplasm of bladder; Z87.442 Personal history of urinary calculi; Z95.0 Presence of cardiac pacemaker; Z95.1 Presence of aortocoronary bypass graft; Z96.0 Presence of urogenital implants; Z79.01 Long term (current) use of anticoagulants
CPT/HCPCS: 36415 ×2; 52356; 74420; 80048 ×2; 81001; 85027 ×2; 85610; 85730; 87088; 93005; 96365; 96366; A4344; A4358; A4649; A4930; C1758; C2617; G0378 ×32; J2250; J2704; J2710; J3010; J3490 ×5; J7030; J7120 ×3; Q9967; A4218; J0690

== ENCOUNTER 2018-06-23 06:45 | Outpatient (CLI) | payer MEDICARE ==
[2018-06-22 17:22] VITALS: BP 151/70
[2018-06-22 17:46] LABS: MEAN CORPUSCULAR HEMOGLOBIN 28.1 pg (27.0-33.0); MEAN CORPUSCULAR HGB CONC 32.8 g/dL (32.0-36.0); MEAN CORPUSCULAR VOLUME 85.5 fL (79-99); NUCLEATED RED BLOOD CELLS 0.1 % (0.0-0.19); PLATELET COUNT (AUTO) 175 K/uL (130-400); RED BLOOD CELL COUNT(AUTO) 3.97 MIL/uL (4.50-6.20); RED CELL DISTRIBUTION WIDTH 17.5 % (11.0-15.5)
[2018-06-22 17:48] LABS: APPEARANCE,URINE Clear (CLEAR); BILIRUBIN,URINE Negative (NEGATIVE); COLOR,URINE Yellow (YELLOW); GLUCOSE, URINE (UA) Negative (NEGATIVE); KETONES,URINE Trace mg/dL (NEGATIVE); LEUKOCYTE ESTERASE ,URINE Negative (NEGATIVE); NITRATE,URINE Negative (NEGATIVE); OCCULT BLOOD,URINE Negative (NEGATIVE); PH,URINE 5.5 (5.0-8.0); PROTEIN,URINE Negative (NEGATIVE)
[2018-06-22 17:56] LABS: CREATININE 1.6 mg/dL (0.5-1.5); POTASSIUM 3.9 mmol/L (3.5-5.1)
[2018-06-22 17:58] LABS: INR 0.99 (0.85-1.15); PARTIAL THROMBOPLASTIN TIME 27.7 SEC (26.3-35.5); PROTHROMBIN TIME 10.4 SEC (9.6-11.6)
--- NOTE | 2018-06-22 18:15 | NUR ---
EKG Dr Mejia reviewed Ekg, no new orders, ok to proceed
[~2018-06-23] VITALS: Ht 179.1 cm; Wt 94.7 kg
[~2018-06-23 06:45] MED LIST changes: -FEXO1TAB8 PO; -ROSU20TA PO; +ROSU20TA23 PO
[2018-06-23 07:10] VITALS: BP 146/68
[2018-06-23] MEDS ORDERED: LACTATED RINGERS 1000ML 1,000 ML IV ONE (07:48)
[2018-06-23] MEDS ORDERED: GENTAMICIN 80 MG/NS 100 ML PB 100 ML IV ONE (08:00)
[2018-06-23] MEDS ORDERED: GENTAMICIN SULFATE 80 MG/2 ML VIAL ONE (08:11)
--- NOTE | 2018-06-23 08:30 | NUR ---
CANCELLED pt cancelled surgery due to Dr Duarte has scheduled procedure at another hospital and would return at 1500 today .Patient did not want to wait and requested to go home
== END 2018-06-23 08:30 ==
LOC: DAH 06:45 → EDSTATUS 08:35
PROVIDERS: ATTEND Urology
DX: C67.9 Malignant neoplasm of bladder, unspecified (principal); Z53.9 Procedure and treatment not carried out, unspecified reason
CPT/HCPCS: 36415; 80048; 81003; 85027; 85610; 85730; 87088; 93005; J1580 ×2; J7120

== ENCOUNTER 2018-07-14 10:51 | Observation (INO) | payer MEDICARE ==
[2018-07-13 13:32] VITALS: BP 179/92
[2018-07-13 13:35] LABS: HEMATOCRIT 35.7 % (42-54); MEAN CORPUSCULAR HEMOGLOBIN 28.5 pg (27.0-33.0); MEAN CORPUSCULAR HGB CONC 33.1 g/dL (32.0-36.0); MEAN CORPUSCULAR VOLUME 86.2 fL (79-99); PLATELET COUNT (AUTO) 161 K/uL (130-400); RED BLOOD CELL COUNT(AUTO) 4.14 MIL/uL (4.50-6.20); WHITE BLOOD COUNT (AUTO) 6.5 K/uL (4.8-10.8)
[2018-07-13 13:44] LABS: CREATININE 1.2 mg/dL (0.5-1.5); POTASSIUM 4.2 mmol/L (3.5-5.1)
[2018-07-13 14:02] LABS: INR 0.99 (0.85-1.15); PARTIAL THROMBOPLASTIN TIME 28.8 SEC (26.3-35.5); PROTHROMBIN TIME 10.4 SEC (9.6-11.6)
[2018-07-13 14:16] LABS: APPEARANCE,URINE CLEAR (CLEAR); BILIRUBIN,URINE NEGATIVE (NEGATIVE); COLOR,URINE YELLOW (YELLOW); GLUCOSE, URINE (UA) NEGATIVE (NEGATIVE); KETONES,URINE NEGATIVE (NEGATIVE); LEUKOCYTE ESTERASE ,URINE NEGATIVE (NEGATIVE); NITRATE,URINE NEGATIVE (NEGATIVE); OCCULT BLOOD,URINE NEGATIVE (NEGATIVE); PH,URINE 5.5 (5.0-8.0); PROTEIN,URINE NEGATIVE (NEGATIVE); UROBILINOGEN,URINE 0.2 mg/dL (0.2-1.0)
[2018-07-13] MEDS: CLINDAMYCIN 600 MG/D5% WATER 50 ML IV SCH (15:00)
[~2018-07-14] VITALS: Ht 182.9 cm; Wt 93.4 kg
[2018-07-14] VITALS (21 sets, daily range): BP systolic 143–161; BP diastolic 64–82
[~2018-07-14 10:51] MED LIST changes: +LACTATED RINGERS 1000ML 1,000 ML IV SCH; +MITOMYCIN IV SCH; +SODIUM CHLORIDE 0.9% IV SCH
[2018-07-14] MEDS ORDERED: CLINDAMYCIN 600 MG/D5% WATER 50 ML IV ONE (11:22)
[2018-07-14] MEDS ORDERED: MITOMYCIN 40 MG VIAL ONE (12:18)
[2018-07-14] MEDS ORDERED: PROPOFOL 10 MG/ML 20ML VIAL IV ONE (12:33)
[2018-07-14] MEDS ORDERED: LIDOCAINE PF 2% 5ML ABBOJECT ONE (12:33)
[2018-07-14] MEDS ORDERED: FENTANYL CITRATE PF 50 MCG/1 ML 2ML VIAL ONE (12:33)
[2018-07-14] MEDS ORDERED: SUCCINYLCHOLINE 200MG/10ML SYR ONE (12:33)
[2018-07-14] MEDS ORDERED: BACITRACIN 50,000 UNIT VIAL ONE (13:03)
[2018-07-14] MEDS: CLINDAMYCIN 600 MG/D5% WATER 50 ML IV SCH ×2 (13:15→19:21)
[2018-07-14] MEDS ORDERED: ROCURONIUM 10MG/1ML SYR 10 MG/ML ML ONE (13:24)
[2018-07-14] MEDS ORDERED: EPHEDRINE SULFATE 50 MG/ML AMPULE ONE (13:48)
[2018-07-14] MEDS ORDERED: GLYCOPYRROLATE 1 MG/5 ML SYRINGE ONE (14:17)
[2018-07-14] MEDS ORDERED: NEOSTIGMINE 5MG/5ML SYR IV ONE (14:17)
[2018-07-14] MEDS ORDERED: ACETAMINOPHEN-CODEINE 300/30MG TAB PO PRN (18:30)
[2018-07-14] MEDS ORDERED: ONDANSETRON HCL 4 MG/2 ML VIAL IVP PRN (18:30)
[2018-07-14] MEDS ORDERED: ACETAMINOPHEN 325 MG TAB PO PRN (18:30)
[2018-07-14] MEDS ORDERED: MEPERIDINE-PF 75 MG/ML SYG IM PRN (18:30)
[2018-07-14] MEDS: SODIUM CHLORIDE 0.9% 1000ML 1,000 ML IV SCH (19:23)
[2018-07-14] MEDS ORDERED: AMLODIPINE BESYLATE 5 MG TAB PO ONE (19:26)
[2018-07-14] MEDS ORDERED: CARVEDILOL 25 MG TABLET PO ONE (19:26)
[2018-07-14] MEDS ORDERED: LISINOPRIL 20 MG TABLET PO SCH (21:00)
[2018-07-15 00:18] VITALS: BP 125/68
[2018-07-15] MEDS: CLINDAMYCIN 600 MG/D5% WATER 50 ML IV SCH ×2 (03:11→09:02)
[2018-07-15 04:31] VITALS: BP 139/69
[2018-07-15 05:13] LABS: HEMATOCRIT 31.9 % (42-54); MEAN CORPUSCULAR HEMOGLOBIN 28.7 pg (27.0-33.0); MEAN CORPUSCULAR HGB CONC 33.4 g/dL (32.0-36.0); MEAN CORPUSCULAR VOLUME 85.9 fL (79-99); PLATELET COUNT (AUTO) 130 K/uL (130-400); RED BLOOD CELL COUNT(AUTO) 3.71 MIL/uL (4.50-6.20); RED CELL DISTRIBUTION WIDTH 15.4 % (11.0-15.5); WHITE BLOOD COUNT (AUTO) 6.3 K/uL (4.8-10.8)
[2018-07-15 05:28] LABS: POTASSIUM 3.6 mmol/L (3.5-5.1)
[2018-07-15 08:00] VITALS: BP 150/84
[2018-07-15] MEDS ORDERED: SPIRONOLACTONE 25 MG TAB PO SCH (09:00)
[2018-07-15] MEDS ORDERED: CARVEDILOL 12.5 MG TABLET PO SCH (09:00)
[2018-07-15] MEDS ORDERED: PANTOPRAZOLE SODIUM 40 MG TABLET.DR PO SCH (09:00)
[2018-07-15] MEDS: CLOPIDOGREL BISULFATE 75 MG TAB PO SCH ×2 (09:00→09:02)
[2018-07-15] MEDS ORDERED: FEXO1TAB8 PO (09:21)
[2018-07-15] MEDS ORDERED: LORATADINE/PSEUDOEPHED 5/120 MG 1 EACH TAB.SR.12H PO SCH (09:45)
[2018-07-15] MEDS: SODIUM CHLORIDE 0.9% 1000ML 1,000 ML IV SCH (11:39)
[2018-07-15 12:00] VITALS: BP 156/74
[2018-07-15] MEDS ORDERED: DOXY50SY PO (15:15)
[2018-07-15] MEDS ORDERED: AMLODIPINE BESYLATE 5 MG TAB PO SCH (18:00)
[2018-07-15] MEDS ORDERED: CARVEDILOL 25 MG TABLET PO SCH (18:00)
== END 2018-07-15 16:30 | disposition home or self-care (01) ==
LOC: DAH 10:51 → DAHIP 10:52 → 3DH 15:41
PROVIDERS: ADMIT Urology; ATTEND Urology
DX: D49.4 Neoplasm of unspecified behavior of bladder (principal); Z90.49 Acquired absence of other specified parts of digestive tract; Z95.1 Presence of aortocoronary bypass graft; Z79.01 Long term (current) use of anticoagulants; Z79.899 Other long term (current) drug therapy
CPT/HCPCS: 36415 ×2; 52224; 80048 ×2; 81003; 85027 ×2; 85610; 85730; 87088; 88305; 93005; 96365; 96366; A4354; A4358; A4600; A4930; G0378 ×30; J0330; J2001; J2704; J2710; J3010; J3490 ×6; J7030; J7120; J9280 ×2

== ENCOUNTER → 2019-05-14 | Outpatient (CLI) | payer MEDICARE ==
[~2019-05-14] MED LIST changes: -CLOP75TA32 PO; +DOXY50SY PO; +FEXO1TAB8 PO; -LACTATED RINGERS 1000ML 1,000 ML IV SCH; -MITOMYCIN IV SCH; -NITR0.4T SL; -SODIUM CHLORIDE 0.9% IV SCH
== END | disposition home or self-care (01) ==
LOC: RAH 12:43
PROVIDERS: ATTEND Urology
DX: K76.89 Other specified diseases of liver (principal); N20.0 Calculus of kidney; J98.11 Atelectasis; I51.7 Cardiomegaly; M47.816 Spondylosis without myelopathy or radiculopathy, lumbar region; K40.90 Unilateral inguinal hernia, without obstruction or gangrene, not specified as recurrent; Z90.49 Acquired absence of other specified parts of digestive tract
CPT/HCPCS: 74176

== ENCOUNTER → 2020-02-09 | Outpatient (CLI) | payer MEDICARE ==
[~2020-02-09] MED LIST changes: +AMLO-257 PO; -AMLO5TAB9 PO; -ASPI-1181 PO; +ASPI-1443 PO
== END | disposition home or self-care (01) ==
LOC: SHCH 11:06
PROVIDERS: ATTEND Internal Medicine Cardiovascular Disease
DX: I08.8 Other rheumatic multiple valve diseases (principal)
CPT/HCPCS: 93306; 93356

== ENCOUNTER → 2020-06-21 | Outpatient (CLI) | payer MEDICARE ==
[~2020-06-21] MED LIST changes: -LISI-613 PO; +LISI20TA24 PO; +SERT-440 PO; -SERT100T12 PO
== END | disposition home or self-care (01) ==
LOC: SHCH 09:44
PROVIDERS: ATTEND Internal Medicine Cardiovascular Disease
DX: I87.2 Venous insufficiency (chronic) (peripheral) (principal)
CPT/HCPCS: 93970

== ENCOUNTER 2020-08-22 14:33 | Emergency (ER) | payer MEDICARE ==
[~2020-08-22] VITALS: Ht 180.3 cm; Wt 95.3 kg
[2020-08-22 16:15] LABS: EOSINOPHILS % (AUTO) 2.4 % (0.0-8.0); HEMATOCRIT 36.9 % (42-54); LYMPHOCYTES % (AUTO) 23.4 % (21.0-51.0); MEAN CORPUSCULAR HEMOGLOBIN 25.7 pg (27.0-33.0); MEAN CORPUSCULAR HGB CONC 30.4 g/dL (32.0-36.0); MEAN CORPUSCULAR VOLUME 84.6 fL (79-99); MONOCYTES % (AUTO) 13.3 % (3.0-13.0); NEUTROPHILS % (AUTO) 59.5 % (40.0-77.0); PLATELET COUNT (AUTO) 132 K/uL (130-400); RED BLOOD CELL COUNT(AUTO) 4.36 MIL/uL (4.50-6.20); RED CELL DISTRIBUTION WIDTH 19.7 % (11.0-15.5)
[2020-08-22 16:25] LABS: CARBON DIOXIDE 33 mmol/L (21-32); CHLORIDE 107 mmol/L (101-111); CREATININE 1.4 mg/dL (0.5-1.5); GLOMERULAR FILTR. RATE CALC 52 mL/min (>60); GLUCOSE,RANDOM 97 mg/dL (70-105); POTASSIUM 3.5 mmol/L (3.5-5.1); SODIUM SERUM 146 mmol/L (136-145); UREA NITROGEN, BLOOD 24 mg/dL (7-18)
[2020-08-22 16:26] LABS: INR 1.06 (0.85-1.15); PROTHROMBIN TIME 11.5 SEC (9.6-11.6)
[2020-08-22 16:28] LABS: PARTIAL THROMBOPLASTIN TIME 25.6 SEC (26.3-35.5)
[2020-08-22 16:30] VITALS: BP 138/84
[2020-08-22 16:36] LABS: ALANINE AMINOTRANSFERASE 24 U/L (12-78); ALBUMIN 3.3 g/dL (3.5-5.0); ASPARTATE AMINOTRANSFERASE 20 U/L (10-37); BILIRUBIN,TOTAL 0.6 mg/dL (0.2-1.0); CREATINE KINASE, TOTAL 72 U/L (21-232); MYOGLOBIN 84 ng/mL (10-92); TOTAL PROTEIN, SERUM 7.1 g/dL (6.0-8.3); TROPONIN I < 0.04 ng/mL (0.00-0.06)
[2020-08-22 17:16] LABS: B-TYPE NATRIURETIC PEPTIDE 264 pg/mL (0-100)
[2020-08-22 18:51] VITALS: BP 115/65
[2020-08-22] MEDS ORDERED: APIX2.5T PO (20:21)
[2020-08-22] MEDS ORDERED: APIXABAN 2.5 MG TABLET PO ONE (20:52)
[2020-08-22] MEDS ORDERED: APIXABAN 5 MG TABLET PO ONE (21:00)
[2020-08-22 21:07] VITALS: BP 163/85
== END 2020-08-22 21:22 | disposition home or self-care (01) ==
LOC: EDH 14:33
DX: I48.91 Unspecified atrial fibrillation (principal); I10 Essential (primary) hypertension; J44.9 Chronic obstructive pulmonary disease, unspecified; I25.10 Atherosclerotic heart disease of native coronary artery without angina pectoris; E66.9 Obesity, unspecified; Z86.718 Personal history of other venous thrombosis and embolism; Z79.82 Long term (current) use of aspirin; Z88.0 Allergy status to penicillin; Z88.1 Allergy status to other antibiotic agents; Z95.2 Presence of prosthetic heart valve; Z86.711 Personal history of pulmonary embolism; Z95.810 Presence of automatic (implantable) cardiac defibrillator; Z79.899 Other long term (current) drug therapy
CPT/HCPCS: 36415; 71045; 80053; 82550; 83874; 83880; 84443; 84484; 85025; 85378; 85610; 85730; 93005

== ENCOUNTER 2021-09-18 11:25 | Observation (INO) | payer MEDICARE ==
[2021-09-13 16:08] LABS: APPEARANCE,URINE CLEAR (CLEAR); BILIRUBIN,URINE NEGATIVE (NEGATIVE); COLOR,URINE YELLOW (YELLOW); GLUCOSE, URINE (UA) NEGATIVE (NEGATIVE); KETONES,URINE NEGATIVE (NEGATIVE); LEUKOCYTE ESTERASE ,URINE NEGATIVE (NEGATIVE); NITRATE,URINE NEGATIVE (NEGATIVE); OCCULT BLOOD,URINE LARGE (NEGATIVE); PROTEIN,URINE TRACE mg/dL (NEGATIVE); UROBILINOGEN,URINE 0.2 mg/dL (0.2-1.0)
[2021-09-13 16:08] LABS: HEMATOCRIT 37.2 % (42-54); MEAN CORPUSCULAR HEMOGLOBIN 24.6 pg (27.0-33.0); MEAN CORPUSCULAR HGB CONC 30.6 g/dL (32.0-36.0); MEAN CORPUSCULAR VOLUME 80.3 fL (79-99); PLATELET COUNT (AUTO) 143 K/uL (130-400); RED BLOOD CELL COUNT(AUTO) 4.63 MIL/uL (4.50-6.20); RED CELL DISTRIBUTION WIDTH 18.4 % (11.0-15.5); WHITE BLOOD COUNT (AUTO) 5.6 K/uL (4.8-10.8)
[2021-09-13 16:16] LABS: CREATININE 1.2 mg/dL (0.5-1.5); INR 1.1 (0.85-1.15); POTASSIUM 3.4 mmol/L (3.5-5.1); PROTHROMBIN TIME 11.9 SEC (9.6-11.6)
[2021-09-13 16:18] LABS: PARTIAL THROMBOPLASTIN TIME 28.6 SEC (26.3-35.5)
[2021-09-13 16:20] LABS: ALBUMIN 3.1 g/dL (3.5-5.0); TOTAL PROTEIN, SERUM 6.9 g/dL (6.0-8.3)
[2021-09-13 16:37] LABS: RBC,URINE 26-50 /HPF (0-1); WBC,URINE 0-1 /HPF (0-1)
[2021-09-13 16:39] LABS: BACTERIA,URINE Rare /HPF (None Seen); MUCUS,URINE Rare LPF (None Seen); SQUAMOUS EPITHELIAL CELL,UR Few /HPF (0-2)
[2021-09-14 13:10] VITALS: BP 157/86
[~2021-09-18] VITALS: Ht 180.3 cm; Wt 92.9 kg
[2021-09-18] VITALS (22 sets, daily range): BP systolic 107–178; BP diastolic 70–103
[2021-09-18] MEDS: MITOMYCIN 40 MG SYR.W..INJ IV ONE ×2 (08:00→16:39)
[~2021-09-18 11:25] MED LIST changes: +CLINDAMYCIN IVPB 600MG/50ML 50 ML IV ONE; -DOXY50SY PO; -PANT40TA PO; +SACU1TAB4 PO
[2021-09-18] MEDS ORDERED: CLINDAMYCIN IVPB 600MG/50ML 50 ML IV ONE (12:29)
[2021-09-18] MEDS ORDERED: LACTATED RINGERS 1000ML 1,000 ML IV ONE (12:29)
[2021-09-18] MEDS ORDERED: COLACE PO (13:12)
[2021-09-18] MEDS ORDERED: FURO20TA4 PO (13:12)
[2021-09-18] MEDS ORDERED: APIX2.5T PO (13:12)
[2021-09-18] MEDS ORDERED: TAMS-1 PO (13:12)
[2021-09-18] MEDS ORDERED: CARV25TA PO (13:12)
[2021-09-18] MEDS ORDERED: AEC81 PO (13:12)
[2021-09-18] MEDS ORDERED: ATOR40TA71 PO (13:12)
[2021-09-18] MEDS ORDERED: AMLO-257 PO (13:12)
[2021-09-18] MEDS ORDERED: OXYB5TAB15 PO (13:12)
[2021-09-18] MEDS ORDERED: SERT-440 PO (13:12)
[2021-09-18] MEDS ORDERED: DIGO125T71 PO (13:12)
[2021-09-18] MEDS ORDERED: POTA-79 PO (13:12)
[2021-09-18] MEDS ORDERED: SUCCINYLCHOLINE CHLORIDE 20 MG/ML 10 ML VIAL ONE (15:46)
[2021-09-18] MEDS ORDERED: DEXAMETHASONE SOD PHOSPHATE 10MG/ML 1ML VIAL ONE (15:46)
[2021-09-18] MEDS ORDERED: MIDAZOLAM HCL 1 MG/ML 2ML VIAL ONE (15:46)
[2021-09-18] MEDS ORDERED: ONDANSETRON 4MG INJ ONE (15:47)
[2021-09-18] MEDS ORDERED: GLYCOPYRROLATE 1 MG/5 ML SYRINGE ONE (15:47)
[2021-09-18] MEDS ORDERED: NEOSTIGMINE 5MG/5ML SYR IV ONE (15:47)
[2021-09-18] MEDS ORDERED: PROPOFOL 10 MG/ML 20ML VIAL IV ONE (15:47)
[2021-09-18] MEDS ORDERED: FENTANYL CITRATE PF 50 MCG/1 ML 2ML VIAL ONE (15:48)
[2021-09-18] MEDS ORDERED: ROCURONIUM 10MG/1ML SYR 10 MG/ML ML ONE (15:48)
[2021-09-18] MEDS ORDERED: EPHEDRINE SULFATE 50 MG/ML AMPULE ONE (15:59)
[2021-09-18] MEDS ORDERED: SUGAMMADEX SODIUM 200 MG/2 ML VIAL IV ONE (16:55)
[2021-09-18] MEDS ORDERED: HYDRALAZINE 20MG/ML VIAL ONE (17:38)
[2021-09-18] MEDS ORDERED: ONDANSETRON 4MG INJ IVP PRN (19:00)
[2021-09-18] MEDS ORDERED: ACETAMINOPHEN WITH CODEINE 1 TAB TAB PO PRN (19:00)
[2021-09-18] MEDS ORDERED: ACETAMINOPHEN 325 MG TAB PO PRN (19:00)
[2021-09-18] MEDS ORDERED: MEPERIDINE-PF 75 MG/ML SYG IM PRN (19:00)
[2021-09-18] MEDS: LACTATED RINGERS 1000ML 1,000 ML IV SCH (19:18)
[2021-09-18] MEDS: CLINDAMYCIN IVPB 600MG/50ML 50 ML IV SCH (20:41)
[2021-09-18] MEDS: FUROSEMIDE 20 MG TABLET PO SCH (20:41)
[2021-09-18] MEDS: CARVEDILOL 25 MG TABLET PO SCH (20:41)
[2021-09-18] MEDS ORDERED: SERTRALINE HCL 50 MG TABLET PO SCH (21:00)
[2021-09-18] MEDS ORDERED: ATORVASTATIN 40 MG TABLET PO SCH (21:00)
[2021-09-18] MEDS ORDERED: TAMSULOSIN HCL 0.4 MG CAP.ER.24H PO SCH (21:00)
[2021-09-19 03:22] VITALS: BP 148/94
[2021-09-19] MEDS: CLINDAMYCIN IVPB 600MG/50ML 50 ML IV SCH ×2 (05:05→15:08)
[2021-09-19 05:26] LABS: BASOPHILS % (AUTO) 0.3 % (0.0-5.0); HEMATOCRIT 42.1 % (42-54); LYMPHOCYTES % (AUTO) 13.4 % (21.0-51.0); MEAN CORPUSCULAR HEMOGLOBIN 24.5 pg (27.0-33.0); MEAN CORPUSCULAR HGB CONC 30.9 g/dL (32.0-36.0); MEAN CORPUSCULAR VOLUME 79.3 fL (79-99); MONOCYTES % (AUTO) 1.9 % (3.0-13.0); NEUTROPHILS % (AUTO) 83.8 % (40.0-77.0); PLATELET COUNT (AUTO) 135 K/uL (130-400); RED BLOOD CELL COUNT(AUTO) 5.31 MIL/uL (4.50-6.20); RED CELL DISTRIBUTION WIDTH 18.8 % (11.0-15.5); WHITE BLOOD COUNT (AUTO) 6.3 K/uL (4.8-10.8)
[2021-09-19 05:37] LABS: POTASSIUM 3.6 mmol/L (3.5-5.1)
[2021-09-19 08:23] VITALS: BP 160/92
[2021-09-19] MEDS ORDERED: DIGOXIN 125 MCG TABLET PO SCH (09:00)
[2021-09-19] MEDS ORDERED: ASPIRIN 81 MG EC TAB PO SCH (09:00)
[2021-09-19] MEDS ORDERED: OXYBUTYNIN CHLORIDE 5 MG TABLET PO SCH (09:00)
[2021-09-19] MEDS ORDERED: KCL 20 MEQ ERTAB PO SCH (09:00)
[2021-09-19] MEDS: FUROSEMIDE 20 MG TABLET PO SCH (09:31)
[2021-09-19] MEDS: CARVEDILOL 25 MG TABLET PO SCH (09:32)
[2021-09-19 12:45] VITALS: BP 129/87
[2021-09-19] MEDS: LACTATED RINGERS 1000ML 1,000 ML IV SCH (15:08)
== END 2021-09-19 18:00 | disposition home or self-care (01) ==
LOC: DAH 11:25 → 3BH 11:26 → DAH 11:26
PROVIDERS: ADMIT Urology; ATTEND Urology
DX: C67.9 Malignant neoplasm of bladder, unspecified (principal); Z20.822 Contact with and (suspected) exposure to COVID-19; I10 Essential (primary) hypertension; I25.10 Atherosclerotic heart disease of native coronary artery without angina pectoris; J43.9 Emphysema, unspecified; Z95.0 Presence of cardiac pacemaker; Z95.1 Presence of aortocoronary bypass graft; Z79.899 Other long term (current) drug therapy
CPT/HCPCS: 80053; 85027; 85610; 85730; 87088; 81001; 36415 ×2; 87635; 71046; 93005; 52601; 96365; 96366; 80048; 85025; C9803; G0378 ×25; A4354; J7120 ×2; J3010; J3490 ×5; J1100; J2710; J0330; J0360; J2250; J2704; J2405; J9280; A5113; A4358; A4215; A4223; A4222; A4221; A4663; A4600

== ENCOUNTER 2022-02-11 12:02 | Observation (INO) | payer MEDICARE ==
[~2022-02-11] VITALS: Ht 193 cm; Wt 90.7 kg
[2022-02-11 11:41] LABS: HEMATOCRIT 37.6 % (42-54); MEAN CORPUSCULAR HEMOGLOBIN 25.8 pg (27.0-33.0); MEAN CORPUSCULAR HGB CONC 30.9 g/dL (32.0-36.0); MEAN CORPUSCULAR VOLUME 83.7 fL (79-99); PLATELET COUNT (AUTO) 128 K/uL (130-400); RED BLOOD CELL COUNT(AUTO) 4.49 MIL/uL (4.50-6.20); RED CELL DISTRIBUTION WIDTH 17.4 % (11.0-15.5); WHITE BLOOD COUNT (AUTO) 5.5 K/uL (4.8-10.8)
[2022-02-11 11:48] LABS: APPEARANCE,URINE CLEAR (CLEAR); BILIRUBIN,URINE NEGATIVE (NEGATIVE); COLOR,URINE YELLOW (YELLOW); GLUCOSE, URINE (UA) NEGATIVE (NEGATIVE); KETONES,URINE NEGATIVE (NEGATIVE); LEUKOCYTE ESTERASE ,URINE TRACE Leu/uL (NEGATIVE); NITRATE,URINE NEGATIVE (NEGATIVE); OCCULT BLOOD,URINE LARGE (NEGATIVE); PROTEIN,URINE 30 mg/dL (NEGATIVE); UROBILINOGEN,URINE 0.2 mg/dL (0.2-1.0)
[2022-02-11 11:50] LABS: INR 1.05 (0.85-1.15); PROTHROMBIN TIME 11.4 SEC (9.6-11.6)
[2022-02-11 11:51] LABS: PARTIAL THROMBOPLASTIN TIME 28.5 SEC (26.3-35.5)
[2022-02-11 11:55] LABS: ALBUMIN 3.3 g/dL (3.5-5.0); CREATININE 1.2 mg/dL (0.5-1.5); POTASSIUM 3.6 mmol/L (3.5-5.1); TOTAL PROTEIN, SERUM 7.4 g/dL (6.0-8.3)
[2022-02-11 11:56] LABS: BACTERIA,URINE Rare /HPF (None Seen); SQUAMOUS EPITHELIAL CELL,UR Rare /HPF (0-2)
[~2022-02-11 12:02] MED LIST changes: -AMLO-257 PO; -ASPI-1443 PO; +ATOR40TA71 PO; -CARV12.511 PO; -CLINDAMYCIN IVPB 600MG/50ML 50 ML IV ONE; +COLACE PO; +DIGO125T71 PO; -FEXO1TAB8 PO; +FURO20TA4 PO; -LISI20TA24 PO; +OXYB5TAB15 PO; +POTA-79 PO; -ROSU20TA23 PO; -SPIR25TA6 PO; +TAMS-1 PO
[2022-02-11 14:51] VITALS: BP 148/79
[2022-02-11] MEDS ORDERED: FURO40TA5 PO (16:58)
[2022-02-11] MEDS ORDERED: PROM25TA7 PO (16:58)
[2022-02-11] MEDS ORDERED: OLAN5TAB76 PO (16:58)
[2022-02-11] MEDS ORDERED: AEC81 PO (16:58)
[2022-02-11] MEDS ORDERED: AMLO2.5T4 PO (16:58)
[2022-02-11] MEDS ORDERED: DICY10CA13 PO (16:58)
[2022-02-11] MEDS ORDERED: APIX2.5T PO (16:58)
[2022-02-12] VITALS (25 sets, daily range): BP systolic 112–147; BP diastolic 68–82
[2022-02-12] MEDS: CLINDAMYCIN IVPB 600MG/50ML 50 ML IV SCH ×2 (05:00→14:00)
[2022-02-12] MEDS ORDERED: MITOMYCIN 40 MG SYR.W..INJ IV SCH (05:00)
[2022-02-12] MEDS ORDERED: LACTATED RINGERS 1000ML 1,000 ML IV ONE (12:20)
[2022-02-12] MEDS ORDERED: ROCURONIUM 10MG/1ML SYR 10 MG/ML ML ONE (13:31)
[2022-02-12] MEDS ORDERED: ONDANSETRON 4MG INJ ONE (13:31)
[2022-02-12] MEDS ORDERED: PROPOFOL 10 MG/ML 20ML VIAL IV ONE (13:31)
[2022-02-12] MEDS ORDERED: FENTANYL CITRATE PF 50 MCG/1 ML 2ML VIAL ONE (13:32)
[2022-02-12] MEDS ORDERED: PHENYLEPHRINE HCL 10 MG/ML 1ML VIAL IV ONE (13:45)
[2022-02-12] MEDS ORDERED: GLYCOPYRROLATE 1 MG/5 ML SYRINGE ONE (14:32)
[2022-02-12] MEDS ORDERED: NEOSTIGMINE 5MG/5ML SYR IV ONE (14:33)
[2022-02-12] MEDS ORDERED: LACTATED RINGERS 1000ML 1,000 ML IV SCH (18:30)
[2022-02-12] MEDS ORDERED: PROMETHAZINE HCL 25 MG TABLET PO PRN (20:30)
[2022-02-12] MEDS ORDERED: SERTRALINE HCL 50 MG TABLET PO SCH (21:00)
[2022-02-12] MEDS ORDERED: CARVEDILOL 25 MG TABLET PO SCH (21:00)
[2022-02-12] MEDS ORDERED: ATORVASTATIN 40 MG TABLET PO SCH (21:00)
[2022-02-12] MEDS ORDERED: AMLODIPINE 2.5 MG TAB PO SCH (21:00)
[2022-02-12] MEDS ORDERED: TAMSULOSIN HCL 0.4 MG CAP.ER.24H PO SCH (21:00)
[2022-02-12] MEDS: SACUBITRIL/VALSARTAN 1 EACH TABLET PO SCH (21:59)
[2022-02-12] MEDS: DICYCLOMINE HCL 10 MG/5 ML ML PO SCH (22:00)
[2022-02-13 00:32] VITALS: BP 115/68
[2022-02-13 04:25] VITALS: BP 113/64
[2022-02-13 06:20] LABS: BASOPHILS % (AUTO) 0.6 % (0.0-5.0); EOSINOPHILS % (AUTO) 3.4 % (0.0-8.0); LYMPHOCYTES % (AUTO) 16.1 % (21.0-51.0); MEAN CORPUSCULAR HEMOGLOBIN 26.2 pg (27.0-33.0); MEAN CORPUSCULAR HGB CONC 30.3 g/dL (32.0-36.0); MEAN CORPUSCULAR VOLUME 86.4 fL (79-99); MONOCYTES % (AUTO) 10.3 % (3.0-13.0); NEUTROPHILS % (AUTO) 69.2 % (40.0-77.0); PLATELET COUNT (AUTO) 117 K/uL (130-400); RED BLOOD CELL COUNT(AUTO) 3.82 MIL/uL (4.50-6.20); RED CELL DISTRIBUTION WIDTH 17.4 % (11.0-15.5); WHITE BLOOD COUNT (AUTO) 5.3 K/uL (4.8-10.8)
[2022-02-13 06:47] LABS: ALBUMIN 2.7 g/dL (3.5-5.0); POTASSIUM 3.2 mmol/L (3.5-5.1); TOTAL PROTEIN, SERUM 6.1 g/dL (6.0-8.3)
[2022-02-13 07:30] VITALS: BP 172/65
[2022-02-13] MEDS ORDERED: FUROSEMIDE 20 MG TABLET PO SCH ×2 (08:00→09:00)
[2022-02-13] MEDS ORDERED: CARVEDILOL 25 MG TABLET PO SCH (08:00)
[2022-02-13] MEDS ORDERED: AMLODIPINE 2.5 MG TAB PO SCH (08:00)
[2022-02-13] MEDS ORDERED: DIGOXIN 125 MCG TABLET PO SCH ×3 (08:00→14:00)
[2022-02-13] MEDS ORDERED: FUROSEMIDE 40 MG TABLET PO SCH (09:00)
[2022-02-13] MEDS ORDERED: KCL 20 MEQ ERTAB PO SCH ×2 (09:00→10:00)
[2022-02-13] MEDS ORDERED: OLANZAPINE 5 MG TAB PO SCH ×2 (09:00→21:00)
[2022-02-13] MEDS: DICYCLOMINE HCL 10 MG/5 ML ML PO SCH ×2 (09:04→16:05)
[2022-02-13] MEDS: SACUBITRIL/VALSARTAN 1 EACH TABLET PO SCH (09:04)
[2022-02-13 11:00] VITALS: BP 99/56
[2022-02-13] MEDS ORDERED: TAMSULOSIN HCL 0.4 MG CAP.ER.24H PO SCH (17:00)
[2022-02-13] MEDS ORDERED: ATORVASTATIN 40 MG TABLET PO SCH (17:00)
== END 2022-02-13 16:42 | disposition home or self-care (01) ==
LOC: DAH 12:02 → DAHIP 02-12 12:03 → DAH 02-12 12:03 → 3AH 02-12 16:38
PROVIDERS: ADMIT Urology; ATTEND Urology
DX: C67.9 Malignant neoplasm of bladder, unspecified (principal); Z20.822 Contact with and (suspected) exposure to COVID-19; I10 Essential (primary) hypertension; J43.9 Emphysema, unspecified; K21.9 Gastro-esophageal reflux disease without esophagitis; Z95.1 Presence of aortocoronary bypass graft; Z79.899 Other long term (current) drug therapy
CPT/HCPCS: 80053 ×2; 85027; 85610; 85730; 87426; 81001; 36415 ×2; 71046; 93005 ×2; 52601; 87088; 85025; G0378 ×26; A4663; A4354; C1758; J7120 ×2; J3010; J3490 ×2; J2710; J2704; J2405; J2370; A4358; C1769; A4215; A4223; A4222; A4221; J9280

== ENCOUNTER → 2022-02-18 | Outpatient (CLI) | payer MEDICARE ==
[~2022-02-18] MED LIST changes: +AEC81 PO; +AMLO2.5T4 PO; +APIX2.5T PO; -COLACE PO; +DICY10CA13 PO; +FURO40TA5 PO; +OLAN5TAB76 PO; -OXYB5TAB15 PO; +PROM25TA7 PO
[2022-02-18 13:17] LABS: BASOPHILS % (AUTO) 0.9 % (0.0-5.0); LYMPHOCYTES % (AUTO) 17.8 % (21.0-51.0); MEAN CORPUSCULAR HEMOGLOBIN 25.9 pg (27.0-33.0); MEAN CORPUSCULAR HGB CONC 31.7 g/dL (32.0-36.0); MEAN CORPUSCULAR VOLUME 81.8 fL (79-99); NEUTROPHILS % (AUTO) 69.7 % (40.0-77.0); PLATELET COUNT (AUTO) 165 K/uL (130-400); RED CELL DISTRIBUTION WIDTH 16.9 % (11.0-15.5)
[2022-02-18 13:26] LABS: CREATININE 1.6 mg/dL (0.5-1.5); POTASSIUM 3.2 mmol/L (3.5-5.1)
== END | disposition home or self-care (01) ==
LOC: RAH 12:46
PROVIDERS: ATTEND Urology
DX: N13.2 Hydronephrosis with renal and ureteral calculous obstruction (principal); C67.9 Malignant neoplasm of bladder, unspecified
CPT/HCPCS: 36415; 76770; 80048; 85025

== ENCOUNTER 2022-05-07 12:26 | Observation (INO) | payer MEDICARE ==
[2022-05-03 12:20] LABS: APPEARANCE,URINE TURBID (CLEAR); BILIRUBIN,URINE NEGATIVE (NEGATIVE); COLOR,URINE YELLOW (YELLOW); GLUCOSE, URINE (UA) NEGATIVE (NEGATIVE); KETONES,URINE NEGATIVE (NEGATIVE); LEUKOCYTE ESTERASE ,URINE 500 Leu/uL (NEGATIVE); NITRATE,URINE NEGATIVE (NEGATIVE); OCCULT BLOOD,URINE LARGE (NEGATIVE); PROTEIN,URINE 100 mg/dL (NEGATIVE); UROBILINOGEN,URINE 0.2 mg/dL (0.2-1.0)
[2022-05-03 12:29] LABS: BACTERIA,URINE FEW /HPF (None Seen); MUCUS,URINE MANY LPF (None Seen); RBC,URINE TNTC /HPF (0-1); WBC,URINE TNTC /HPF (0-1); YEAST,URINE BUDDING MANY /HPF (None Seen)
[2022-05-03 14:25] LABS: HEMATOCRIT 35.2 % (42-54); MEAN CORPUSCULAR HEMOGLOBIN 24.3 pg (27.0-33.0); MEAN CORPUSCULAR HGB CONC 29.3 g/dL (32.0-36.0); PLATELET COUNT (AUTO) 168 K/uL (130-400); RED BLOOD CELL COUNT(AUTO) 4.24 MIL/uL (4.50-6.20); RED CELL DISTRIBUTION WIDTH 18.6 % (11.0-15.5); WHITE BLOOD COUNT (AUTO) 6.1 K/uL (4.8-10.8)
[2022-05-03 14:42] LABS: INR 1.02 (0.85-1.15); PROTHROMBIN TIME 11.1 SEC (9.6-11.6)
[2022-05-03 14:43] LABS: PARTIAL THROMBOPLASTIN TIME 29.6 SEC (26.3-35.5)
[2022-05-03 14:45] LABS: ALBUMIN 3.1 g/dL (3.5-5.0); CREATININE 1.2 mg/dL (0.5-1.5); POTASSIUM 3.5 mmol/L (3.5-5.1); TOTAL PROTEIN, SERUM 7.5 g/dL (6.0-8.3)
[2022-05-03 16:05] VITALS: BP 169/91
[~2022-05-07] VITALS: Ht 180.3 cm; Wt 92.0 kg
[2022-05-07] VITALS (28 sets, daily range): BP systolic 104–158; BP diastolic 66–94
[2022-05-07] MEDS: CLINDAMYCIN IVPB 600MG/50ML 50 ML IV SCH ×2 (05:00→16:00)
[~2022-05-07 12:26] MED LIST changes: -APIX2.5T PO; -PROM25TA7 PO; +VIBE75TA PO
[2022-05-07] MEDS ORDERED: CLINDAMYCIN IVPB 600MG/50ML 50 ML IV ONE (12:39)
[2022-05-07] MEDS ORDERED: LACTATED RINGERS 1000ML 1,000 ML IV ONE (12:39)
[2022-05-07] MEDS ORDERED: PROPOFOL 10 MG/ML 20ML VIAL IV ONE (13:50)
[2022-05-07] MEDS ORDERED: LIDOCAINE PF 100MG/5ML (2%) SYRINGE 5ML ONE (13:50)
[2022-05-07] MEDS ORDERED: FENTANYL CITRATE PF 50 MCG/1 ML 2ML VIAL ONE (13:50)
[2022-05-07] MEDS ORDERED: IOHEXOL-350 50ML VIAL IV ONE (13:56)
[2022-05-07] MEDS ORDERED: EPHEDRINE SULFATE 50 MG/ML AMPULE ONE (14:13)
[2022-05-07] MEDS: MITOMYCIN 40 MG SYR.W..INJ IV SCH ×2 (15:40→17:58)
[2022-05-07] MEDS ORDERED: MEPERIDINE-PF 75 MG/ML SYG IM PRN (16:00)
[2022-05-07] MEDS ORDERED: ONDANSETRON 4MG INJ IVP PRN (16:00)
[2022-05-07] MEDS: LACTATED RINGERS 1000ML 1,000 ML IV SCH (16:00)
[2022-05-07] MEDS ORDERED: ACETAMINOPHEN WITH CODEINE 1 TAB TAB PO PRN (16:00)
[2022-05-07] MEDS ORDERED: ACETAMINOPHEN 325 MG TAB PO PRN ×2 (16:00→20:00)
[2022-05-07] MEDS ORDERED: NITROGLYCERIN 0.4 MG SL TAB SL PRN (20:00)
[2022-05-07] MEDS ORDERED: ONDANSETRON 4MG INJ IV PRN (20:00)
[2022-05-07] MEDS ORDERED: ATORVASTATIN 40 MG TABLET PO SCH (21:00)
[2022-05-07] MEDS: CARVEDILOL 25 MG TABLET PO SCH (21:00)
[2022-05-07] MEDS: FAMOTIDINE 20MG TAB PO SCH (21:00)
[2022-05-07] MEDS ORDERED: SERTRALINE HCL 50 MG TABLET PO SCH (21:00)
[2022-05-07] MEDS ORDERED: AMLODIPINE 2.5 MG TAB PO SCH (21:00)
[2022-05-07] MEDS: SACUBITRIL/VALSARTAN 1 EACH TABLET PO SCH (21:00)
[2022-05-07] MEDS ORDERED: TAMSULOSIN HCL 0.4 MG CAP.ER.24H PO SCH (21:00)
[2022-05-07] MEDS: DICYCLOMINE HCL 20 MG TAB PO SCH (21:00)
[2022-05-07] MEDS ORDERED: IPRATROPIUM/ALBUTEROL SULFATE 3 ML SOLUTION IH PRN (23:30)
[2022-05-08] VITALS: BP 115/70
[2022-05-08 04:00] VITALS: BP 102/59
[2022-05-08] MEDS: CLINDAMYCIN IVPB 600MG/50ML 50 ML IV SCH ×3 (04:52→16:43)
[2022-05-08 05:10] LABS: BASOPHILS % (AUTO) 0.3 % (0.0-5.0); HEMATOCRIT 30.6 % (42-54); LYMPHOCYTES % (AUTO) 14.1 % (21.0-51.0); MEAN CORPUSCULAR HEMOGLOBIN 24.5 pg (27.0-33.0); MEAN CORPUSCULAR HGB CONC 30.1 g/dL (32.0-36.0); MEAN CORPUSCULAR VOLUME 81.4 fL (79-99); MONOCYTES % (AUTO) 6.7 % (3.0-13.0); NEUTROPHILS % (AUTO) 75.3 % (40.0-77.0); PLATELET COUNT (AUTO) 150 K/uL (130-400); RED BLOOD CELL COUNT(AUTO) 3.76 MIL/uL (4.50-6.20); RED CELL DISTRIBUTION WIDTH 18.5 % (11.0-15.5); WHITE BLOOD COUNT (AUTO) 6.3 K/uL (4.8-10.8)
[2022-05-08 05:19] LABS: MAGNESIUM 2.1 mg/dL (1.80-2.40); POTASSIUM 3.7 mmol/L (3.5-5.1)
[2022-05-08] MEDS ORDERED: OLANZAPINE 5 MG TAB PO SCH (09:00)
[2022-05-08] MEDS ORDERED: KCL 20 MEQ ERTAB PO SCH (09:00)
[2022-05-08] MEDS ORDERED: ASPIRIN 81 MG EC TAB PO SCH (09:00)
[2022-05-08] MEDS ORDERED: FUROSEMIDE 20 MG TABLET PO SCH (09:00)
[2022-05-08] MEDS ORDERED: FUROSEMIDE 40 MG TABLET PO SCH (09:00)
[2022-05-08] MEDS ORDERED: VIBEGRON 75 MG PO SCH (09:00)
[2022-05-08] MEDS ORDERED: DIGOXIN 125 MCG TABLET PO SCH (09:00)
[2022-05-08 09:22] LABS: ALBUMIN 2.5 g/dL (3.5-5.0); TOTAL PROTEIN, SERUM 6.3 g/dL (6.0-8.3)
[2022-05-08] MEDS: DICYCLOMINE HCL 20 MG TAB PO SCH ×2 (09:27→13:38)
[2022-05-08] MEDS: FAMOTIDINE 20MG TAB PO SCH (09:28)
[2022-05-08 09:29] VITALS: BP 119/65
[2022-05-08] MEDS: CARVEDILOL 25 MG TABLET PO SCH (09:29)
[2022-05-08] MEDS: SACUBITRIL/VALSARTAN 1 EACH TABLET PO SCH (09:34)
[2022-05-08] MEDS: LACTATED RINGERS 1000ML 1,000 ML IV SCH (16:42)
[2022-05-14] MEDS ORDERED: APIX5TAB PO (11:28)
[2022-05-14] MEDS ORDERED: PRED20TA3 PO (11:28)
== END 2022-05-08 19:30 | disposition home or self-care (01) ==
LOC: DAH 12:26 → 3AH 12:27
PROVIDERS: ADMIT Urology; ATTEND Urology
DX: C67.9 Malignant neoplasm of bladder, unspecified (principal); Z20.822 Contact with and (suspected) exposure to COVID-19; C61 Malignant neoplasm of prostate; C68.0 Malignant neoplasm of urethra; N32.89 Other specified disorders of bladder; N13.1 Hydronephrosis with ureteral stricture, not elsewhere classified; I50.9 Heart failure, unspecified; I48.91 Unspecified atrial fibrillation; E78.5 Hyperlipidemia, unspecified; J43.9 Emphysema, unspecified; K21.9 Gastro-esophageal reflux disease without esophagitis; I25.10 Atherosclerotic heart disease of native coronary artery without angina pectoris; Z79.899 Other long term (current) drug therapy; Z95.1 Presence of aortocoronary bypass graft; Z95.810 Presence of automatic (implantable) cardiac defibrillator
CPT/HCPCS: 52332; 96375; 96365; 96366; 94664; A6260; G0378 ×28; A4663; C2617; C1769; A4354; C1758; J7120 ×4; J3010; J2001; J3490 ×5; J2704; Q9967; J9280; A4358; A4215; A4223; A4222; A4221; 36415; 74420; 80053; 81001; 83735; 85025; 85027; 85610; 85730; 87088; 87426; 88112; 88305

== ENCOUNTER 2022-05-28 19:12 | Emergency (ER) | payer MEDICARE ==
[~2022-05-28 19:12] MED LIST changes: +APIX5TAB PO; +PRED20TA3 PO
== END 2022-05-28 19:39 | disposition left against medical advice (07) ==
LOC: EDH 19:12
DX: I10 Essential (primary) hypertension (principal); Z53.21 Procedure and treatment not carried out due to patient leaving prior to being seen by health care provider